=== PATIENT | female | born 1955 | race Caucasian/White ===

== ENCOUNTER 2019-12-28 14:41 | Outpatient (CLI) | payer OTHER, SELFPAY ==
[2019-12-28 14:50] VITALS: BMI 14.8
[2019-12-28 15:00] VITALS: BP 113/58; PULSE 110; RESP 18; TEMP 37.1; O2SAT 93
[2019-12-28 15:30] VITALS: BP 104/61; PULSE 104; RESP 18
[2019-12-28 15:51] LABS: Chloride 101 mmol/L (98-107); Potassium 5.2 mmoL/L (3.5-5.1); Sodium 137 mmol/L (136-145)
[2019-12-28 15:53] LABS: Amylase 41 U/L (30-110)
[2019-12-28 15:54] LABS: Alanine Aminotransferase 16 U/L (12-78); Albumin Level 4.1 g/dl (3.5-5.0); Albumin/Globulin Ratio 1.5 (1.1-1.8); Alkaline Phosphatase 104 U/L (38-126); Anion Gap 16.2 mEq/L (5-15); Aspartate Amino Transferase 21 U/L (14-36); Bilirubin,Total 0.6 mg/dl (0.2-1.3); Blood Urea Nitrogen 32 mg/dl (7-17); Calcium 9.1 mg/dl (8.4-10.2); Carbon Dioxide 25 mmol/L (22.0-30.0); Creatinine Clearance Estimated 23 mL/min (50-200); Estimated Glomerular Filt Rate 38 ml/min (>60); GFR (African American) 46 ML/MIN (>60); Globulin 2.8 g/dL (1.3-3.2); Glucose 130 mg/dl (74-100); Total Protein,Serum 6.9 g/dl (6.3-8.2)
[2019-12-28 16:00] VITALS: BP 92/41; PULSE 103; RESP 18
[2019-12-28 16:00] LABS: Lipase 19 U/L (23-300)
[2019-12-28 16:30] VITALS: BP 96/66; PULSE 88; RESP 18
== END 2019-12-28 16:35 | disposition home or self-care (01) ==
LOC: INF 14:45
PROVIDERS: PCP Family Medicine; Visit Provider Physician Assistant
DX: K52.9 Noninfective gastroenteritis and colitis, unspecified (principal); E86.0 Dehydration
CPT/HCPCS: 36415; 80053; 82150; 83690; 96360; 96367; 96375

== ENCOUNTER → 2020-03-02 11:30 | Outpatient (CLI) | payer OTHER, SELFPAY ==
--- NOTE | 2020-03-02 11:34 | CT_ITS ---
PROCEDURE: CT ABDOMEN PELVIS W CON CLINICAL INDICATION: ABD PAIN Severe lower abdominal pain with weight loss with nausea vomiting and COMPARISON: No exams were available for comparison TECHNIQUE: IV Contrast: 75ML OPTIRAY 350 Oral Contrast 450ml Redicat Axial images obtained with sagittal and coronal reformats. All CT scans at the facility use one or more dose reduction, viz: automated exposure control, ma/kV adjustment per patient size (including targeted exams where dose is matched to indication, i.e. head), or iterative reconstruction technique. FINDINGS: LOWER THORAX: There are centrilobular emphysematous changes in the lung bases. Mild atelectatic changes are present in the left lower lobe there is pericardial thickening measuring up to 1 cm consistent with pericardial effusion. ABDOMEN & PELVIS: There has been a prior cholecystectomy. Moderate intra and extrahepatic biliary ductal dilatation. No obvious pancreatic mass or choledocholithiasis. Please correlate with patient's liver function tests. MRCP may provide further evaluation for possible stricture at the distal CBD. There is mild thickening of the GE junction which may be better evaluated with upper GI or upper endoscopy. The spleen, adrenal glands, and left kidney has an unremarkable appearance. The there is a cyst in the mid polar region of the right kidney posteriorly at 1 cm. No evidence of appendicitis. There is thickening of the mucosa of the terminal ileum. Mild thickening of the jejunum. Mildly prominent small bowel loops are present in the left lower pelvic region. No evidence of diverticulitis. No acute bony anomaly IMPRESSION: 1. Prominent intra and extrahepatic biliary ductal dilatation. Common bile duct measures up to 16 mm. MRCP may provide further evaluation to exclude distal common duct stricture. 2. Thickening of the terminal ileum. There is also some thickening of the jejunum with a mildly prominent fluid-filled small bowel loop in the left lower pelvic region. These findings are compatible with enteritis. 3. Pericardial effusion. 4. Mild thickening of the GE junction nonspecific Dictated by: Mitul Islas MD 03/02/2020 13:16 Electronically signed by Mitul Islas MD in [place] 03/02/2020 13:16
== END ==
PROVIDERS: PCP Family Medicine; Visit Provider Nurse Practitioner Family
DX: R10.84 Generalized abdominal pain (principal)
CPT/HCPCS: 74177; Q9967

== ENCOUNTER → 2020-03-05 11:24 | Outpatient (CLI) | payer OTHER, SELFPAY ==
--- NOTE | 2020-03-05 11:30 | XR_ITS ---
PROCEDURE: XR CHEST 2V CLINICAL HISTORY: PERICARDIAL EFFUSION COMPARISON: CT ABDOMEN PELVIS W CON from 03/02/2020 FINDINGS: Normal heart size. COPD with interstitial thickening and Juancarlos B lines in the lung bases. Irregular density is noted in the right upper lobe and may be due to an area of scarring at approximately 12 mm. There is generalized osteopenia. No acute bony abnormalities. IMPRESSION: COPD. There are Juancarlos B lines in the lung bases which may be due to interstitial edema or interstitial lung disease. 12 mm opacity is present in the right upper lobe and could be due to or neoplasm. Follow-up is recommended. Dedicated chest CT may provide further evaluation. Dictated by: Mitul Islas MD 03/05/2020 13:40 Electronically signed by Mitul Islas MD in [place] 03/05/2020 13:40
== END ==
PROVIDERS: PCP Nurse Practitioner Family; Visit Provider Nurse Practitioner Family
DX: I31.9 Disease of pericardium, unspecified (principal)
CPT/HCPCS: 71046

== ENCOUNTER → 2020-03-07 13:44 | Outpatient (CLI) | payer OTHER, SELFPAY | PROVIDERS: PCP Nurse Practitioner Family; Visit Provider Nurse Practitioner Family | DX: I31.3 Pericardial effusion (noninflammatory) (principal) | CPT/HCPCS: 93306 ==

== ENCOUNTER → 2020-03-19 13:57 | Outpatient (POV) | payer OTHER, SELFPAY ==
[2020-03-19 15:17] LABS: Basophils # 0.1 K/mm3 (0-0.2); Basophils % 0.7 % (0.1-2.0); Eosinophils # 0.1 K/mm3 (0.0-0.4); Eosinophils % 1.3 % (0.1-12.0); Hematocrit 41.9 % (37.0-47.0); Hemoglobin 13.9 g/dL (12.2-16.2); Lymphocytes # 1.7 K/mm3 (0.7-4.5); Lymphocytes % 22.1 % (10-50); Mean Corpuscular HGB Conc 33.1 g/dL (31.8-35.4); Mean Corpuscular Hemoglobin 28.9 pg (27.0-31.2); Mean Corpuscular Volume 87.2 fl (81-99); Mean Platelet Volume 7.8 fl (7.4-10.4); Monocytes # 0.6 K/mm3 (0.1-1.0); Neutrophils # 5.1 K/mm3 (1.8-7.8); Neutrophils % 67.9 % (37.0-80.0); Platelet Count 314 K/mm3 (142-424); Red Cell Distribution Width 14.4 % (11.5-17.5); White Blood Count 7.6 K/mm3 (4.8-10.8)
[2020-03-19 16:28] LABS: Chloride 104 mmol/L (98-107); Potassium 4.2 mmoL/L (3.5-5.1); Sodium 136 mmol/L (136-145)
[2020-03-19 16:30] LABS: Alanine Aminotransferase 9 U/L (12-78); Aspartate Amino Transferase 16 U/L (14-36); Blood Urea Nitrogen 12 mg/dl (7-17); Estimated Glomerular Filt Rate 101 ml/min (>60); GFR (African American) 122 ML/MIN (>60)
[2020-03-19 16:31] LABS: Albumin Level 4.2 g/dl (3.5-5.0); Albumin/Globulin Ratio 1.5 (1.1-1.8); Alkaline Phosphatase 87 U/L (38-126); Anion Gap 13.2 mEq/L (5-15); Bilirubin,Total 0.5 mg/dl (0.2-1.3); Calcium 9.2 mg/dl (8.4-10.2); Carbon Dioxide 23 mmol/L (22.0-30.0); Globulin 2.8 g/dL (1.3-3.2); Glucose 96 mg/dl (74-100)
[2020-03-19 16:37] LABS: C-Reactive Protein 2.8 mg/L (0-4)
[2020-03-21 18:09] LABS: Deamidated Gliadin Abs, IgA 4 units (0-19); Deamidated Gliadin Abs, IgG 1 units (0-19); Endomysial IgA Antibody Negative (Negative); Tissue Transglutaminase IgA Ab <2 U/mL (0-3); Tissue Transglutaminase IgG Ab 4 U/mL (0-5)
[2020-03-22 07:29] LABS: Reticulin IgA Antibody Negative titer (Neg:<1:2.5)
[2020-03-22 14:20] LABS: Saccharomyces cerevisiae, IgA <20.0 Units (0.0-24.9); Saccharomyces cerevisiae, IgG <20.0 Units (0.0-24.9)
== END ==
PROVIDERS: PCP Family Medicine; Visit Provider Nurse Practitioner Family
DX: R19.4 Change in bowel habit (principal); R11.2 Nausea with vomiting, unspecified; R93.89 Abnormal findings on diagnostic imaging of other specified body structures
CPT/HCPCS: 36415; 80053; 83516; 85025; 86140; 86255; 86256; 86671

== ENCOUNTER → 2020-03-21 09:57 | Outpatient (CLI) | payer OTHER, SELFPAY ==
--- NOTE | 2020-03-21 09:59 | CT_ITS ---
PROCEDURE: CT CHEST W CON CLINCAL INDICATION: ABN CXR Abnormal chest x-ray, right upper lobe nodule, pericardial effusion COMPARISON: CT ABDOMEN PELVIS W CON from 03/02/2020 XR CHEST 2V from 03/05/2020 TECHNIQUE: IV Contrast: 75ml Optiray 350 Axial images obtained with sagittal and coronal reformats. All CT scans at the facility use one or more dose reduction, viz: automated exposure control, ma/kV adjustment per patient size (including targeted exams where dose is matched to indication, i.e. head), or iterative reconstruction technique. FINDINGS: HEART AND MEDIASTINAL STRUCTURES: There is thickening of the pericardium once again noted consistent with pericardial effusion the measuring up to 1.4 cm in thickness probably not significantly changed from the CT scan of 03/02/2020. LUNGS AND PLEURAL SPACES: Centrilobular emphysema with COPD and scattered areas of scarring. Irregular parenchymal opacity is present in the subpleural region of the right upper lobe corresponding to the radiographic abnormality. This measures approximately 2 cm. There are some air bronchograms in this region. This could be due to some pulmonary scarring. Similar but smaller opacity is present in the left upper lobe in the subpleural region at 1 cm. There is a calcified granuloma in the left lower lobe BONY STRUCTURES: Mild thoracic scoliosis convex right. UPPER ABDOMEN: The prominent biliary ectasia ADDITIONAL FINDINGS: There are numerous cutaneous nodules IMPRESSION: 1. Persistent thickening of the pericardium consistent with small pericardial effusion. 2. COPD with scattered areas of scarring with parenchymal opacity in both upper lobes right more prominent than left which may be related to pulmonary scarring. Recommend 3 month follow-up to confirm short term stability. 3. Multiple cutaneous nodules which require correlation with clinical findings Dictated by: Mitul Islas MD 03/22/2020 11:36 Electronically signed by Mitul Islas MD in [place] 03/22/2020 11:36
== END ==
PROVIDERS: PCP Family Medicine; Visit Provider Nurse Practitioner Family
DX: R93.89 Abnormal findings on diagnostic imaging of other specified body structures (principal)
CPT/HCPCS: 71260; Q9967

== ENCOUNTER → 2020-03-27 08:46 | Outpatient (CLI) | payer OTHER, SELFPAY ==
--- NOTE | 2020-03-27 08:50 | MR_ITS ---
PROCEDURE: MR ABDOMEN WO CON CLINICAL INDICATION: NAUSEA AND VOMITING, ALTERED BOWEL FUNCTION Nausia, vomiting, and diarrhea [id number]. Abnormal CT 03-02-20 Dilated common bile duct COMPARISON: CT ABDOMEN PELVIS W CON from 03/02/2020 TECHNIQUE: Routine multiplanar multi echo sequences are performed without gadolinium enhancement. MRCP performed FINDINGS: Prominent intra and extrahepatic biliary ductal dilatation is present. The common bile duct tapers distally without obvious internal filling defect. The pancreatic duct is normal. Common bile duct measures up to 14 mm in diameter. There is moderate intrahepatic biliary ductal dilatation. No obvious pancreatic mass. There is a 1 cm cyst of the right kidney IMPRESSION: 1. Dilated intra and extrahepatic biliary system with common bile duct measuring up to 15 mm. The common bile duct tapers distally without evidence of common duct stone. No malignant appearing strictures. Unremarkable appearing pancreatic duct.. Dictated by: Mitul Islas MD 03/30/2020 11:39 Electronically signed by Mitul Islas MD in [place] 03/30/2020 11:39
== END ==
PROVIDERS: PCP Family Medicine; Visit Provider Nurse Practitioner Family
DX: R19.4 Change in bowel habit (principal); R11.2 Nausea with vomiting, unspecified; R93.89 Abnormal findings on diagnostic imaging of other specified body structures
CPT/HCPCS: 74181; 76376

== ENCOUNTER → 2020-04-02 10:30 | Outpatient (CLI) | payer OTHER, SELFPAY ==
--- NOTE | 2020-04-02 | CA_ITS ---
APPROVED REPORT Exam: Pharmacologic Technologist: Jami Bush Ht: 5 ft 0 in Wt: 77 lbs BSA: 1.24 m2 HR: 67 bpm BP: 110/45 mmHg Indications: Shortness of Breath, Dizziness Medical History Medications: Aspirin,,,,, Metoprolol,,,,, ProMETHAZINE,,,,, RoSUVASTATIN,,,,, Stress Test Details Test: LEXISCAN HR Resting HR: 73 bpm Max Heart Rate (APMHR): 157 bpm Max HR Achieved: 109 bpm Target HR (85% APMHR): 133 bpm % of APMHR: 69 Recovery HR: 92 bpm BP Resting BP: 110.0/45.0 mmHg Max BP: 131.0/48.0 mmHg Recovery BP: 129.0/46.0 mmHg ECG Clinical Exercise duration: 04:01 min Highest Stage Achieved: Stress ECG Conclusion Resting ECG: Sinus Rhythm Lexiscan portion complete. Patient complained of shortness of breath during infusion. Symptoms: Shortness of breath during infusion, resolved in recovery. Arrhythmias/Ectopy: No ectopy noted. ST-T Changes: Less than 1.[address] depression. Conclusion: Images to follow. Test Summary REST . . . . . . . Resting REST 09:09 . . 73 . 110/ 45 . . Stage 1 . . . . . . . Myoview Injected Stage 1 01:00 . . 103 . . . . Stage 2 01:00 . . 108 . 131/ 48 . . Stage 3 01:00 . . 107 . 122/ 51 . . Stage 4 01:00 . . 102 . 128/ 51 . . Stage 4 01:01 . . 102 . 128/ 51 . Stop exercise at 04:01 RECOVERY 01:00 . . 105 . 113/ 49 . . RECOVERY 02:00 . . 101 . 113/ 49 . . RECOVERY 03:00 . . 98 . 130/ 48 . . RECOVERY 04:00 . . 93 . 130/ 48 . . RECOVERY 04:14 . . 94 . 129/ 46 . . Electronically signed by : Obed Velazquez, 04/02/2020 19:13:03
--- NOTE | 2020-04-02 10:31 | CA_ITS ---
APPROVED REPORT Flight Test Data Acquisition Technician: PETR Laterality: Bilateral Indications: bilateral carotid bruits, dizziness Risk Factors Hypertension: Smoking Doppler Spectral Velocity Analysis ECA (R) 117.40/8.60 cm/s ECA (L) 64.20/7.50 cm/s dICA (R) 72.80/13.70 cm/s dICA (L) 93.40/32.60 cm/s Augusto (R) 90.00/21.40 cm/s Augusto (L) 94.20/30.00 cm/s pICA (R) 76.30/21.40 cm/s pICA (L) 76.30/19.70 cm/s dCCA (R) 76.40/18.00 cm/s dCCA (L) 75.40/18.80 cm/s pCCA (R) 109.80/22.50 cm/s pCCA (L) 127.70/28.30 cm/s Vert (R) 61.70/13.70 cm/s Vert (L) 65.80/16.00 cm/s ICA/CCA 1.18 ICA/CCA 1.25 Findings Duplex evaluation demonstrates stenosis of the right proximal internal carotid artery <20% with PSV <140 cm/sec, EDV <100 cm/sec, and IC/CC Ratio <4.0.Duplex evaluation demonstrates stenosis of the left proximal internal carotid artery <20% with PSV <140 cm/sec, EDV <100 cm/sec, and IC/CC Ratio <4.0. Conclusion No increased velocities to suggest hemodynamically significant stenosis in either internal carotid artery. Electronically signed by : Mitul Islas MD 04/02/2020 19:04:05
--- NOTE | 2020-04-02 10:31 | NM_ITS ---
APPROVED REPORT Exam: Nuclear Stress Test Indication: Palpitations, Abnormal EKG, Tobacco use, Family history Patient Location: Outpatient Stress Tech: Jami Bush [place] Tech:Rocio Marino, ARRT, RT (R)(N) Ht: 5 ft 0 in Wt: 77 lbs Bra Size: 34A HR: 67 bpm BP: 110/45 mmHg BSA: 1.24 m2 History: Palpitations, Abnormal EKG, Tobacco use, Family history Procedure: Patient received a 0.4 mg of intravenous Lexiscan, resting heart rate 67 bpm, resting blood pressure 110/45 mmHg, with Lexiscan maximum heart rate achived was 106 bpm which is Less than 85 % of the maximum predicted heart rate and blood pressure was 131/48 mmHg. With Lexiscan, patient denied any complaint of chest pain. Electrocardiogram Resting electrocardiogram showed sinus rhythm right ventricular conduction delay, with Lexiscan there is less than 1.[address] segment depression noted from the baseline EKG. The EKG portion of the Lexiscan sestamibi is nondiagnostic. Cardiac Stress and Resting SPECT Images: Cardiac Stress and Resting SPECT images were obtained using technetium 99m Myoview 32.2 mCi stress and 10.78 mCi at rest. Gated SPECT for the analysis of segmental wall motion and calculation of the ejection fraction also done. Cardiac stress and resting SPECT images show uniform myocardial activity without segmental perfusion abnormality, computer derived ejection fraction is over 65% with no regional wall motion abnormality, right ventricle is normal size and contractility. Conclusion: 1. The EKG portion of the Lexiscan Myoview is nondiagnostic. 2. No scintigraphic evidence of reversible ischemia seen, computer derived ejection fraction is over 65% with no regional wall motion abnormality, right ventricle is normal size and contractility. 3. Normal Lexiscan Myoview study. Electronically signed by : Obed Velazquez, 04/02/2020 19:15:00
--- NOTE | 2020-04-02 12:18 | HMH.ITSHM ---
Current Home Medications as stated by this patient Nelida Brooke or customer response representative. []ROSUVASTATIN PROMETHAZINE METOPROLOL ASA
== END ==
PROVIDERS: PCP Family Medicine; Visit Provider Internal Medicine Cardiovascular Disease
DX: R42 Dizziness and giddiness (principal); R06.00 Dyspnea, unspecified; R09.89 Other specified symptoms and signs involving the circulatory and respiratory systems; R00.0 Tachycardia, unspecified; R94.31 Abnormal electrocardiogram [ECG] [EKG]
CPT/HCPCS: 78452; 93017; 93880; A9502; J2785

== ENCOUNTER → 2020-05-04 12:29 | Outpatient (CLI) | payer OTHER, SELFPAY ==
[2020-05-04 15:44] LABS: Coronavirus 19 IgG Antibody Negative (Negative); Coronavirus 19 IgM Antibody Negative (Negative)
== END ==
PROVIDERS: Visit Provider Internal Medicine Gastroenterology
DX: Z01.818 Encounter for other preprocedural examination (principal); R10.11 Right upper quadrant pain
CPT/HCPCS: 36415; 86328

== ENCOUNTER 2020-05-07 12:53 | Day surgery (SDC) | payer OTHER, SELFPAY ==
[2020-05-01 10:28] VITALS: BMI 15.0
[2020-05-07] VITALS (8 sets, daily range): BP systolic 87–125; BP diastolic 38–69; PULSE 66–101; RESP 12–18; TEMP 36.3–36.7; O2SAT 91–95
--- NOTE | 2020-05-07 13:35 | FL_ITS ---
PROCEDURE: FL ERCP CLINICAL INDICATION: R upper quadrant pain COMPARISON: MR MR ABDOMEN WO CON from 03/27/2020 FINDINGS: Fluoroscopy time: 1 minutes and 2 seconds The ampulla was unable to be cannulated. Two images are submitted with the endoscope in place. IMPRESSION: Unable to cannulate the ampulla Dictated by: Mitul Islas MD 05/07/2020 18:07 Mitul Islas MD in [place] 05/07/2020 18:07
--- NOTE | 2020-05-07 13:57 | P.PCN_ITS ---
[facility] Procedure Note Procedure Note:: ERCP procedure Report: Endoscopic retrograde cholangiopancreatography with biopsies Endoscopist: Tone Sierra II, MD Referring Physician: Darrell Contreras MD/ANNI Spears Date of Procedure: May 07, 2020 Equipment: Olympus 180 side viewing endoscope duodenoscope Sedation: MAC sedation Indication: Ms. Brooke is a 65-year-old female who is here for diagnostic/therapeutic ERCP. The patient does report right upper quadrant abdominal pain that radiates into the back. She will get severe pain and this is also associated with nausea, vomiting and diarrhea. She does get some rumbling in the abdomen but reports no bloating, gassiness or belching. She did have a CAT scan in February 2020 that showed a very prominent intra-and extrahepatic biliary system that was 16 mm. She has previously had cholecystectomy. She also has some thickening of the terminal ileum and jejunum compatible with enteritis. She has never had a colonoscopy. Her MRCP on March 27, 2020 showed a dilated intra-and extrahepatic biliary system with common bile duct measuring up to 15 mm. The patient does state that she had this corrected with biliary stent 16 years ago. She has lost 10 pounds in weight. She has an unremarkable appearing pancreatic duct on her imaging. She reports no acholic stools or jaundice. Her liver chemistries have been normal. Procedure: Prior to the procedure, a history and physical exam was performed, and patient's medications and allergies were reviewed. The risks, benefits and alternatives of the sedation and procedure were discussed with the patient. All questions were answered and informed consent was obtained. The patient was brought to the fluoroscopic radiology room. Patient identification and proposed procedure were verified by the physician and the nurse. The patient was placed in a swimmer's position between left lateral decubitus and prone position and the scope was passed under direct vision. Throughout the procedure, the patient's blood pressure, pulse, and oxygen saturations were monitored continuously. The ERCP was accomplished without difficulty. The patient tolerated the procedure well. Findings: The side-viewing duodenal scope was passed directly into the upper esophagus and advanced to the second portion of the duodenum. The ampulla was very prominent with no recognition of ampullary orifice and adjacent edematous mucosa. The ampulla was 1.8 cm and bulbous. Multiple attempts were made to identify the ampullary orifice but this area was very friable and was some spontaneous heme seen with every attempt making visualization difficult. After several attempts and obscured view, the procedure was aborted. Biopsies were taken from the ampulla. The mucosa within the second portion of the duodenum was scalloped and biopsies were obtained to rule out celiac disease. The bulb and pylorus were normal. There was bile reflux with some mild linear reactive gastropathy and some mild gastric atrophic gastritis. Upon retroflexion there was no significant hiatal hernia. The remainder of the esophageal mucosa was normal. Impression: 1. Enlarged ampullary bulbous prominence with surrounding edema and friability making cannulation difficult 2. Bile reflux with mild linear reactive gastropathy of antrum and mild chronic atrophic gastritis Plan: Based upon the moderate biliary ductal dilation and ampullary prominence with failure of biliary cannulation, I am going to repeat liver chemistries and CA-19-9 today. If these are elevated, I am going to recommend endoscopic ultrasound for further evaluation.
[2020-05-07 15:33] LABS: Bilirubin,Unconjugated 0.5 mg/dL (0.0-1.1)
[2020-05-07 15:34] LABS: Alanine Aminotransferase 12 U/L (12-78); Albumin Level 3.2 g/dl (3.5-5.0); Alkaline Phosphatase 117 U/L (38-126); Aspartate Amino Transferase 20 U/L (14-36); Bilirubin,Direct 0.1 mg/dl (0.0-0.4); Bilirubin,Indirect 0.4 mg/dL (0.0-0.9); Bilirubin,Total 0.5 mg/dl (0.2-1.3); Total Protein,Serum 5.9 g/dl (6.3-8.2)
--- NOTE | 2020-05-07 15:41 | HMH.ANESCL ---
[facility] Anesthesia Checklist - Patient Identification Patient Identification: Arm Band, Verbal (Name & ) - Structural Data Admitted From: Home Planned Operative Procedure/s: ERCP Consent for Planned Operative Procedure(s) Verified: Yes Verified Documents: Surgical Consent, History and Physical - NPO Status Verified Time NPO: 00:00 - Chart Verification Results Verified: None - Additional verifications Anesthesia Reactions: No - Airway Assessment C-Spine Mobility Assessed: Yes TMJ Mobility Assessed: Yes Dentition: Edentulous - Neurological Assessment Level of Consciousness: Awake, Alert, Appropriate, Follows Commands Hx Seizures: No Numbness or tingling in extremities: No - Anesthesia Plan Anesthesia Risk discussed: Yes Anesthesia Plan: Verified ASA Class: III Anesthesia Type: MAC [facility] History I have reviewed the patient's past medical history: Yes Medical History: Reports:: Arrhythmia, Chronic Obstructive Pulmonary Disease (COPD), Hyperlipidemia, Hypertension, Palpitations Denies:: Cancer, Diabetes Mellitus Type 1, Diabetes Mellitus Type 2, Internal Pacemaker, MRSA, Seizures *Have you ever received a pneumonia vaccine?: No *Have you received a flu vaccine this season?: No Other Medical History: Reports: Liver Disease Anesthesia experience/problems:: None Laterality Cases: Right: Breast Biopsy, Bilateral: Tonsillectomy Other Surgeries: Yes: Appendectomy, Dilation and Curettage, Tubal Ligation, Other. No: Pacemaker Amputation: No Fractures: Yes (L ANKLE-SCREWS PLACED THEN LATER REMOVED) - *Social History Last grade of school completed: GED Smoking Status: Current every day smoker Tobacco Type: cigarettes # Packs/Day (cigarettes): 1 Alcohol Intake: never Substance Use Type: denies use *Occupational Status:: employed Housing: other Household Members: friend(s) *Travel in the last 8 weeks: None Family Hx:: Cancer, Coronary Artery Disease, Diabetes, Hyperlipidemia, Hypertension, Kidney Disease
[2020-05-09 13:02] LABS: CA 19-9 10 U/mL (0-35)
== END 2020-05-07 16:00 | disposition home or self-care (01) ==
LOC: OUTP 12:54
PROVIDERS: PCP Family Medicine; Visit Provider Internal Medicine Gastroenterology
PROC: (CPT 43261; principal; 2020-05-07 14:00)
DX: K83.8 Other specified diseases of biliary tract (principal); K29.40 Chronic atrophic gastritis without bleeding; K21.9 Gastro-esophageal reflux disease without esophagitis; K31.9 Disease of stomach and duodenum, unspecified; E78.5 Hyperlipidemia, unspecified; I10 Essential (primary) hypertension; J44.9 Chronic obstructive pulmonary disease, unspecified; I49.9 Cardiac arrhythmia, unspecified; K76.9 Liver disease, unspecified; Z90.89 Acquired absence of other organs; Z90.49 Acquired absence of other specified parts of digestive tract; Z83.3 Family history of diabetes mellitus; Z72.0 Tobacco use
CPT/HCPCS: 43261; 36415; 74330; 80076; 86316; Q9967

== ENCOUNTER → 2020-06-14 08:40 | Outpatient (CLI) | payer OTHER, SELFPAY ==
[2020-06-14 11:40] LABS: Coronavirus 19 IgG Antibody Negative (Negative); Coronavirus 19 IgM Antibody Negative (Negative)
== END ==
PROVIDERS: Visit Provider Internal Medicine Gastroenterology
DX: Z01.89 Encounter for other specified special examinations (principal); Z12.11 Encounter for screening for malignant neoplasm of colon; R10.11 Right upper quadrant pain
CPT/HCPCS: 36415; 86328

== ENCOUNTER 2020-06-15 09:12 | Day surgery (SDC) | payer OTHER, SELFPAY ==
[2020-06-07 14:07] VITALS: BMI 15.0
[2020-06-15] VITALS (7 sets, daily range): BP systolic 87–115; BP diastolic 48–73; PULSE 78–99; RESP 16; TEMP 36.6–36.7; O2SAT 95–97
--- NOTE | 2020-06-15 10:59 | P.PN_ITS ---
[facility] Anesthesia Checklist - Patient Identification Patient Identification: Arm Band - Structural Data Admitted From: Home Planned Operative Procedure/s: colonoscopy Consent for Planned Operative Procedure(s) Verified: Yes Verified Documents: Surgical Consent, History and Physical - NPO Status Verified Time NPO: 00:00 - Additional verifications Anesthesia Reactions: No - Airway Assessment C-Spine Mobility Assessed: Yes (mp2) TMJ Mobility Assessed: Yes Dentition: Edentulous - Neurological Assessment Level of Consciousness: Awake, Alert - Anesthesia Plan Anesthesia Risk discussed: Yes Anesthesia Plan: Verified ASA Class: III Anesthesia Type: MAC [facility] History I have reviewed the patient's past medical history: Yes Medical History: Reports:: Arrhythmia, Chronic Obstructive Pulmonary Disease (COPD), Hyperlipidemia, Hypertension, Palpitations Denies:: Cancer, Diabetes Mellitus Type 1, Diabetes Mellitus Type 2, Internal Pacemaker, MRSA, Seizures *Have you ever received a pneumonia vaccine?: No *Have you received a flu vaccine this season?: No Other Medical History: Reports: Liver Disease Anesthesia experience/problems:: nac Laterality Cases: Right: Breast Biopsy, Bilateral: Tonsillectomy Other Surgeries: Yes: Appendectomy, Dilation and Curettage, Tubal Ligation, Other. No: Pacemaker Amputation: No Fractures: Yes (L ANKLE-SCREWS PLACED THEN LATER REMOVED) - *Social History Last grade of school completed: GED Smoking Status: Current every day smoker Tobacco Type: cigarettes # Packs/Day (cigarettes): 1 Alcohol Intake: never Substance Use Type: denies use *Occupational Status:: retired Housing: house Household Members: friend(s) *Travel in the last 8 weeks: None Family Hx:: Diabetes
--- NOTE | 2020-06-15 11:09 | HMH.PROC ---
[facility] Procedure Note Procedure Note:: Colonoscopy Procedure Report: Colonoscopy with snare tissue removal Endoscopist: Tone Sierra II, MD Referring physician: Quinn Contreras MD Date of Procedure: June 15, 2020 Equipment: Olympus 180 variable stiffness pediatric colonoscope Sedation: MAC sedation Indication: Mrs. Brooke is a 65-year-old female who is having right upper quadrant and right-sided abdominal pain that radiates into the back. She does get diarrhea. She also had some nausea. Her weight has stabilized but she has lost a moderate amount of weight. The [facility] and had a dilated biliary system primarily because of her neurofibromatosis involvement of the duodenum. This was benign. Recently, she had a CAT scan in February 2020 that showed a prominent intra-and extrahepatic biliary system at 16 mm. The CAT scan did show thickening of the ileum and jejunum compatible with enteritis. The patient has never had a colonoscopy. Her MRCP on March 27, 2020 again showed intra-and extrahepatic biliary ductal dilation. Her ERCP showed an enlarged ampullary bulbous prominence consistent with neurofibromatosis involvement of the duodenum. The patient's liver function panel including alkaline phosphatase, ALT and total bilirubin were normal. Her CA-19-9 was normal. Additional lab work from February 2020 did show hemoglobin 13.9 and hematocrit 41.9. The patient reports no family history of colon cancer. Procedure: Prior to the procedure, a history and physical exam was performed, and patient's medications and allergies were reviewed. The risks, benefits and alternatives of the sedation and procedure were discussed with the patient. All questions were answered and informed consent was obtained. The patient was brought to the procedure room. Patient identification and proposed procedure were verified by the physician and the nurse. The patient was placed in a left lateral decubitus position and the scope was passed under direct vision. Throughout the procedure, the patient's blood pressure, pulse, and oxygen saturations were monitored continuously. The colonoscopy was accomplished without difficulty. The patient tolerated the procedure well. Findings: On digital rectal examination there was normal rectal tone. There were no external hemorrhoids. The colonoscope was introduced through the anal canal to the rectum and advanced to the cecum. The appendiceal orifice was identified but the ileocecal valve was encased by tumor/friable fungating mass lesion that involved the valve and proximal ascending colon that was one third the circumference of the colon in this region. This mass lesion was not tattooed because it was located easily adjacent to the valve but tissue was removed via snare polypectomy/snare tissue removal to have more abundant specimen for pathology. Upon withdrawal, the remainder of the ascending/hepatic flexure, transverse, descending colon were normal. There were scattered diverticuli throughout the descending and sigmoid colon (LEFT colon). The rectum itself was normal. Upon retroflexion within the rectum there were grade 1-2 internal hemorrhoids. The preparation was excellent throughout with Arden Preparation Score of 9. The cecal time was 12 minutes. Impression: 1. Colonic mass involving cecum/ascending colon and encasement of ileocecal valve?consistent with right-sided colon cancer 2. Left-sided diverticulosis 3. Grade 1-2 internal hemorrhoids Plan: I am going to recommend repeat imaging/CT scan of the abdomen and pelvis with IV and oral contrast. The patient does have significant comorbidities and I will speak with Dr. Sony Sanderson (colorectal surgery at [facility]) for possible right hemicolectomy. We will need staging evaluation with imaging. I will discuss all of the findings with the patient and family.
--- NOTE | 2020-06-15 11:31 | CT_ITS ---
PROCEDURE: CT ABDOMEN PELVIS W CON CLINICAL INDICATION: colon mass Right-sided abdominal pain, colon mass COMPARISON: CT CT ABDOMEN PELVIS W CON from 03/02/2020 TECHNIQUE: IV Contrast: 75ML OPTIRAY 350 Oral Contrast None Axial images obtained with sagittal and coronal reformats. All CT scans at the facility use one or more dose reduction, viz: automated exposure control, ma/kV adjustment per patient size (including targeted exams where dose is matched to indication, i.e. head), or iterative reconstruction technique. FINDINGS: LOWER THORAX: There are centrilobular emphysematous changes in the lung bases. There is thickening of the pericardium suggesting pericardial effusion. This measures to 1 cm. ABDOMEN & PELVIS: There has been a prior cholecystectomy. There is moderate intra and extrahepatic biliary ductal dilatation similar to the previous exam. The pancreatic duct is slightly prominent in the head of the pancreas. The spleen, adrenal glands, and pancreas has an unremarkable appearance. There is prominent thickening of the pyloric region of the stomach concentric in nature. Direct visualization may provide further evaluation. No focal liver lesions are evident. There is a right renal cyst measuring 12 mm. The left kidney has an unremarkable appearance. There are mildly prominent fluid-filled small bowel loops in the pelvic region which are nonspecific with a few air-fluid levels in this area. These bowel loops are unopacified with oral contrast. There is increased soft tissue density at the ileocecal valve and in the cecum suspicious for soft tissue mass/neoplasm. This area of abnormal soft tissue density measures approximately 3.5 by 1.7 cm. No pelvic adenopathy or abnormal fluid collection apparent. There is some subcutaneous densities noted at the pubic region left more so than right which is of questionable cyst clinical significance. No acute bony anomalies are evident. Previously noted thickened terminal ileum has a improved. IMPRESSION: 1. Soft tissue mass at the ileocecal valve and cecal area suspicious for neoplasm. Severe inflammatory changes such is typhlitis could have a similar appearance. Recommend correlation with recent colonoscopy. 2. Mildly prominent small bowel loops in the lower pelvic region which are nonspecific. Enteritis or ileus is a consideration. 3. No change in the moderate intra and extrahepatic biliary ductal dilatation. 4. Concentric thickening at the pyloric region of the stomach which could be inflammatory or neoplastic. Direct visualization may provide further evaluation Dictated by: Mitul Islas MD 06/15/2020 14:50 Mitul Islas MD in [place] 06/15/2020 14:50
[2020-06-15 11:55] LABS: Basophils # 0.1 K/mm3 (0-0.2); Basophils % 0.9 % (0.1-2.0); Eosinophils # 0.2 K/mm3 (0.0-0.4); Eosinophils % 2.6 % (0.1-12.0); Hematocrit 37.8 % (37.0-47.0); Hemoglobin 12.5 g/dL (12.2-16.2); Lymphocytes # 0.9 K/mm3 (0.7-4.5); Lymphocytes % 14.3 % (10-50); Mean Corpuscular HGB Conc 33.1 g/dL (31.8-35.4); Mean Corpuscular Hemoglobin 28.7 pg (27.0-31.2); Mean Corpuscular Volume 86.5 fl (81-99); Mean Platelet Volume 7.7 fl (7.4-10.4); Monocytes # 0.8 K/mm3 (0.1-1.0); Monocytes % 11.7 % (1.7-9.3); Neutrophils # 4.5 K/mm3 (1.8-7.8); Neutrophils % 70.5 % (37.0-80.0); Platelet Count 324 K/mm3 (142-424); Red Blood Count 4.37 M/mm3 (4.20-5.40); Red Cell Distribution Width 14.3 % (11.5-17.5); White Blood Count 6.4 K/mm3 (4.8-10.8)
[2020-06-15 12:12] LABS: Chloride 116 mmol/L (98-107); Potassium 4.5 mmoL/L (3.5-5.1); Sodium 147 mmol/L (136-145)
[2020-06-15 12:14] LABS: Alanine Aminotransferase 81 U/L (12-78); Alkaline Phosphatase 406 U/L (38-126); Aspartate Amino Transferase 78 U/L (14-36); Bilirubin,Total 0.5 mg/dl (0.2-1.3); Blood Urea Nitrogen 9 mg/dl (7-17); Creatinine Clearance Estimated 32 mL/min (50-200); Estimated Glomerular Filt Rate 101 ml/min (>60); GFR (African American) 122 ML/MIN (>60)
[2020-06-15 12:15] LABS: Albumin Level 3.8 g/dl (3.5-5.0); Albumin/Globulin Ratio 1.4 (1.1-1.8); Anion Gap 13.5 mEq/L (5-15); Calcium 9.4 mg/dl (8.4-10.2); Carbon Dioxide 22 mmol/L (22.0-30.0); Globulin 2.7 g/dL (1.3-3.2); Glucose 103 mg/dl (74-100); Iron 43 ug/dL (37-170); Total Protein,Serum 6.5 g/dl (6.3-8.2)
[2020-06-15 12:24] LABS: Total Iron Binding Capacity 486 ug/dL (265-497)
[2020-06-16 18:18] LABS: CEA 2.9 ng/mL (0.0-4.7)
== END 2020-06-15 12:15 | disposition home or self-care (01) ==
LOC: OUTP 09:14
PROVIDERS: PCP Family Medicine; Visit Provider Internal Medicine Gastroenterology
PROC: 0DJD8ZZ Inspection of Lower Intestinal Tract, Via Natural or Artificial Opening Endoscopic (ICD-10-PCS; CPT 45378; principal; 2020-06-15 10:30)
DX: Z87.19 Personal history of other diseases of the digestive system (principal); K57.30 Diverticulosis of large intestine without perforation or abscess without bleeding; K64.0 First degree hemorrhoids; K63.89 Other specified diseases of intestine; J44.9 Chronic obstructive pulmonary disease, unspecified; E78.5 Hyperlipidemia, unspecified; I10 Essential (primary) hypertension; R00.2 Palpitations; I49.9 Cardiac arrhythmia, unspecified; Z90.49 Acquired absence of other specified parts of digestive tract; Z87.39 Personal history of other diseases of the musculoskeletal system and connective tissue; Z72.0 Tobacco use
CPT/HCPCS: 45385; 36415; 74177; 80053; 82378; 82728; 83540; 83550; 85025; Q9967

== ENCOUNTER → 2020-08-03 08:50 | Outpatient (CLI) | payer OTHER, SELFPAY ==
[2020-08-03 09:19] LABS: Blood Urea Nitrogen 16 mg/dl (7-17); Estimated Glomerular Filt Rate 72 ml/min (>60); GFR (African American) 88 ML/MIN (>60)
--- NOTE | 2020-08-03 10:22 | CT_ITS ---
PROCEDURE: CT CHEST WO/W CON CLINCAL INDICATION: COLON CANCER COMPARISON: CT CT CHEST W CON from 03/21/2020 TECHNIQUE: IV Contrast: 75ml Isovue 370 Axial images obtained with sagittal and coronal reformats. All CT scans at the facility use one or more dose reduction, viz: automated exposure control, ma/kV adjustment per patient size (including targeted exams where dose is matched to indication, i.e. head), or iterative reconstruction technique. FINDINGS: HEART AND MEDIASTINAL STRUCTURES: Car all thickening remains and there is a persistent small pericardial effusion unchanged in size from the previous study 03/21/2020. LUNGS AND PLEURAL SPACES: There is hyperexpansion lung loo with advanced centrilobular emphysematous changes most pronounced in the upper lobes bilaterally. There are stable areas of subpleural irregular opacities in the posterior segments of both upper lobes larger right side than left and the stable appearance is most consistent with postinflammatory pleural and parenchymal scarring. I would doubt metastatic disease. There is no acute infiltrate seen and there is no pleural fluid. BONY STRUCTURES: There is minor focal dextroscoliotic curvature of the upper thoracic spine which was seen previously. All thoracic vertebrae appear intact. No lytic or blastic lesions are seen. UPPER ABDOMEN: A biliary duct stent is seen in place ADDITIONAL FINDINGS: No other significant abnormalities. IMPRESSION: Advanced emphysematous changes with stable areas of pleural and parenchymal scarring in the upper lobes bilaterally. There are no CT findings to suggest pulmonary metastatic disease. Dictated by: Dr. Bernard Calhoun MD 08/03/2020 12:07 Dr. Bernard Calhoun MD in [place] 08/03/2020 12:07
== END ==
PROVIDERS: Visit Provider Internal Medicine Medical Oncology
DX: C18.9 Malignant neoplasm of colon, unspecified (principal); Z01.818 Encounter for other preprocedural examination
CPT/HCPCS: 36415; 71270; 82565; 84520; Q9967

== ENCOUNTER → 2020-08-20 08:09 | Outpatient (CLI) | payer OTHER, SELFPAY ==
[2020-08-20 08:42] LABS: Basophils # 0.1 K/mm3 (0-0.2); Basophils % 0.8 % (0.1-2.0); Eosinophils # 0.1 K/mm3 (0.0-0.4); Eosinophils % 1.2 % (0.1-12.0); Hematocrit 50.4 % (37.0-47.0); Hemoglobin 15.7 g/dL (12.2-16.2); Lymphocytes # 2.1 K/mm3 (0.7-4.5); Lymphocytes % 24.3 % (10-50); Mean Corpuscular HGB Conc 31.2 g/dL (31.8-35.4); Mean Corpuscular Hemoglobin 29.1 pg (27.0-31.2); Mean Corpuscular Volume 93.3 fl (81-99); Monocytes # 0.9 K/mm3 (0.1-1.0); Monocytes % 10.3 % (1.7-9.3); Neutrophils # 5.4 K/mm3 (1.8-7.8); Neutrophils % 63.5 % (37.0-80.0); Platelet Count 290 K/mm3 (142-424); Red Cell Distribution Width 15.1 % (11.5-17.5); White Blood Count 8.5 K/mm3 (4.8-10.8)
[2020-08-20 08:50] LABS: Chloride 103 mmol/L (98-107); Sodium 142 mmol/L (136-145)
[2020-08-20 08:53] LABS: Blood Urea Nitrogen 14 mg/dl (7-17); Estimated Glomerular Filt Rate 101 ml/min (>60); GFR (African American) 122 ML/MIN (>60)
[2020-08-20 08:54] LABS: Anion Gap 17.1 mEq/L (5-15); Calcium 10.4 mg/dl (8.4-10.2); Carbon Dioxide 28 mmol/L (22.0-30.0); Glucose 149 mg/dl (74-100)
[2020-08-20 09:28] LABS: Potassium 6.1 mmoL/L (3.5-5.1)
[2020-08-20 10:57] LABS: Coronavirus 19 IgG Antibody Negative (Negative); Coronavirus 19 IgM Antibody Negative (Negative)
== END ==
PROVIDERS: Visit Provider Surgery
DX: C18.9 Malignant neoplasm of colon, unspecified (principal)
CPT/HCPCS: 36415; 80048; 85025; 86328

== ENCOUNTER → 2020-08-21 09:58 | Outpatient (CLI) | payer OTHER, SELFPAY ==
[2020-08-21 11:18] LABS: Chloride 99 mmol/L (98-107)
[2020-08-21 11:19] LABS: Potassium 5.1 mmoL/L (3.5-5.1); Sodium 140 mmol/L (136-145)
[2020-08-21 11:22] LABS: Alanine Aminotransferase 29 U/L (12-78); Albumin Level 4.4 g/dl (3.5-5.0); Albumin/Globulin Ratio 1.6 (1.1-1.8); Alkaline Phosphatase 161 U/L (38-126); Anion Gap 14.1 mEq/L (5-15); Aspartate Amino Transferase 36 U/L (14-36); Bilirubin,Total 0.5 mg/dl (0.2-1.3); Blood Urea Nitrogen 17 mg/dl (7-17); Carbon Dioxide 32 mmol/L (22.0-30.0); Estimated Glomerular Filt Rate 63 ml/min (>60); GFR (African American) 77 ML/MIN (>60); Globulin 2.8 g/dL (1.3-3.2); Glucose 121 mg/dl (74-100); Total Protein,Serum 7.2 g/dl (6.3-8.2)
== END ==
PROVIDERS: Visit Provider Family Medicine
DX: J95.811 Postprocedural pneumothorax (principal)
CPT/HCPCS: 36415; 80053

== ENCOUNTER 2020-08-22 14:21 | Inpatient (IN) | payer OTHER, SELFPAY ==
[2020-08-21 09:21] VITALS: BMI 14.2
[2020-08-22] VITALS (31 sets, daily range): BP systolic 81–142; BP diastolic 38–72; PULSE 68–120; RESP 16–22; TEMP 35.9–37.1; O2SAT 89–98; BMI 14.2
--- NOTE | 2020-08-22 09:21 | P.PN_ITS ---
[facility] Anesthesia Checklist - Patient Identification Patient Identification: Arm Band, Verbal (Name & ) - Structural Data Admitted From: Home Planned Operative Procedure/s: pac Consent for Planned Operative Procedure(s) Verified: Yes Verified Documents: History and Physical - NPO Status Verified Time NPO: 00:00 - Chart Verification Results Verified: CBC, BMP - Additional verifications Patient : No Anesthesia Reactions: No Hx Blood Transfusions: No Blood Transfusion Reaction: No Cephalosporin Allergy: No Previous Colonoscopy: No - Cardiovascular Assessment Heart Sounds: S1 & S2 Pulse Strength: Baseline Pulse Rhythm: Regular Peripheral Edema: No - Airway Assessment C-Spine Mobility Assessed: Yes TMJ Mobility Assessed: Yes Dentition: Edentulous - Neurological Assessment Level of Consciousness: Awake, Alert, Appropriate Hx Seizures: No Numbness or tingling in extremities: No - Anesthesia Plan Anesthesia Risk discussed: Yes Anesthesia Plan: Verified ASA Class: III Anesthesia Type: General [facility] History I have reviewed the patient's past medical history: Yes Medical History: Reports:: Arrhythmia, Cancer (colon), Chronic Obstructive Pulmonary Disease (COPD), Hyperlipidemia, Hypertension, Palpitations Denies:: Diabetes Mellitus Type 1, Diabetes Mellitus Type 2, Internal Pace maker, MRSA, Seizures *Have you ever received a pneumonia vaccine?: No *Have you received a flu vaccine this season?: No Other Medical History: Reports: Anemia, Liver Disease. Denies: Blood Transfusion Reaction Anesthesia experience/problems:: none Laterality Cases: Right: Breast Biopsy, Bilateral: Tonsillectomy Other Surgeries: Yes: No Previous Surgery, Appendectomy, Cholecystectomy, Colonoscopy, Colon Resection (colon cancer), Dilation and Curettage, Diagnostic Lap, Tubal Ligation, Other (right tube, right ovary, tumor from breast, stomach). No: Pacemaker Amputation: No Fractures: Yes (L ANKLE-SCREWS PLACED THEN LATER REMOVED) - *Social History Last grade of school completed: GED Smoking Status: Current every day smoker Tobacco Type: cigarettes # Packs/Day (cigarettes): 1 #Yrs smoked (if former smoker): 45 Alcohol Intake: never Substance Use Type: denies use *Occupational Status:: retired Housing: house Household Members: friend(s) *Travel in the last 8 weeks: None Family Hx:: Diabetes
--- NOTE | 2020-08-22 11:51 | HMH.OPNOTE ---
Date of procedure: 08/22/20 Pre-op Diagnosis:: Colon cancer need for venous access for chemotherapy Post-op Diagnosis:: Same Procedure performed:: Placement of single-lumen 8 Zambian tunneled subcutaneous catheter removed with the reservoir port (PowerPort) and left subclavian vein Surgeon:: Jaxon Norris MD PRIVATE INQUIRY AGENT:: Feroz Kendall Anesthesia: LMA Estimated blood loss (mL): 15 Clinical Note:: Patient is a 65-year-old female with several comorbidities and neurofibromatosis. She began having right-sided abdominal pain several months ago with associated weight loss and had a CT scan done in February 2020 which revealed biliary ductal dilatation and thickening of the ileocecal region. This was followed by MRCP. She underwent ERCP by Dr. Sierra on 05/07/2020. She did have a benign mass. 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 She underwent right hemicolectomy by Dr. 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 She has seen Dr. Wood. Tentative plan is for 6 months of adjuvant chemotherapy starting on August 23. This is pending negative CT scan of the chest. Plan was for PowerPort placement for chemotherapy. Operative findings:: Essentially normal anatomy Operative note:: Patient was taken to the operating room. She was given preoperative intravenous antibiotics. In the operating room she was placed in a supine position. General anesthesia was induced via LMA. Bilateral neck and upper chest were prepped and draped in the standard surgical fashion. Patient was positioned in Trendelenburg position. Local anesthetic was infiltrated inferior to the left clavicle medial to the deltopectoral groove. 18-gauge needle was passed several times and ultimately the left subclavian vein was cannulated with good return of venous flow. Guidewire was inserted. Fluoroscopy was used to confirm appropriate position of the guidewire. Small incision was made at the guidewire insertion site. Subcutaneous tissues were dilated using the dilator with breakaway sheath. Dilator and guidewire were removed. Single-lumen PowerPort catheter was inserted through the breakaway sheath which was then removed. Fluoroscopy was used once again to confirm appropriate positioning of the catheter tip near the atriocaval junction. Skin was marked with a skin marker for planned subcutaneous tunnel and pocket. Local anesthetic was infiltrated. Incision was made at the site of the subcutaneous pocket. Electrocautery was used to create subcutaneous pocket. Due to the paucity of soft tissue this was to the pectoralis muscle. Fluoroscopy was used to confirm good positioning of the catheter with once again. Catheter was cut to the appropriate length. It was secured to the PowerPort reservoir. The reservoir port was secured into the subcutaneous pocket with interrupted 2-0 Vicryl sutures. Port aspirated and flushed without difficulty. There was good hemostasis. Subdermal tissues were closed with a running 2-0 Vicryl. Skin incisions were closed with 4-0 Monocryl in a subcuticular fashion. Dressings were applied. Port was then accessed through the Tegaderm. There was good return of blood. It was flushed with injectable saline followed by heparinized saline. There were no immediate complications. Condition: stable Disposition: PACU Complications:: None immediately apparent
--- NOTE | 2020-08-22 12:01 | HMH.ANESI ---
[facility] Anesthesia Record Part I Intake, IV Amount: 500 Estimated blood loss (mL): 15 Urine output (mL): 0 Blood Products used (#): none Blood Pressure: 109/57 SaO2: 93 Pulse Rate: 105 Respiratory Rate: 16 Temperature: 98.3 F Patient is:: Awake, Drowsy, Nasal O2, Stable Stable to PACU at:: 11:55
--- NOTE | 2020-08-22 12:07 | XR_ITS ---
PROCEDURE: XR CHEST PORTABLE CLINICAL HISTORY: port-a-cath placement, left chest COMPARISON: CR XR CHEST 2V from 03/05/[address] CHEST WO/W CON from 08/03/2020 FINDINGS: 1207 hours. Left subclavian Port-A-Cath has been placed. The tip is in good position in the region of the superior vena cava. There is a medium-sized left apical pneumothorax measuring approximately 5.8 cm at the apical pleural distance. There is severe emphysema with pulmonary fibrosis and consolidation or volume loss within the left midlung. There is a small component of the pneumothorax which is lateral extending to the lung base. There is a biliary stent noted in the right upper quadrant IMPRESSION: Interval left Port-A-Cath placement with medium size left apical pneumothorax with a small lateral component. There is no evidence of mediastinal shift. Severe emphysema with consolidation or volume loss in the left midlung. Estella the patient's nurse in postop recovery was given this report by telephone 08/22/2020 at 12:50 p.m. Dictated by: Mitul Islas MD 08/22/2020 13:00 Mitul Islas MD in [place] 08/22/2020 13:00
--- NOTE | 2020-08-22 14:06 | FL_ITS ---
PROCEDURE: FL GUIDED CENTRAL LINE PLACEMT CLINICAL INDICATION: PORT A CATH COMPARISON: No exams were available for comparison FINDINGS: Fluoroscopy time: 0.4 minutes Single image submitted shows a central venous line present with the tip in the region the SVC. IMPRESSION: Fluoro assisted central line placement Dictated by: Mitul Islas MD 08/22/2020 19:26 Mitul Islas MD in [place] 08/22/2020 19:26
--- NOTE | 2020-08-22 14:25 | XR_ITS ---
PROCEDURE: XR CHEST PORTABLE CLINICAL INDICATION: chest tube placement chest tube placement, follow-up pneumothorax COMPARISON: CR XR CHEST 2V from 03/05/[address] CHEST WO/W CON from 08/03/2020 CR XR CHEST PORTABLE from 08/22/2020 FINDINGS: Left-sided chest tube has been placed. The tip overlies the upper chest medially. The left apical pneumothorax is no longer apparent. The lateral component is also not identified. There may be a small basilar component. Atelectatic changes in the left midlung have improved. There are atelectatic changes in the left lung base and also in the right lung base. Left subclavian Port-A-Cath tip is in the region the SVC. Right-sided upper abdominal catheter is present consistent with a biliary stent. IMPRESSION: Status post left-sided chest tube insertion with marked decrease in size of the left pneumothorax Dictated by: Mitul Islas MD 08/22/2020 14:44 Mitul Islas MD in [place] 08/22/2020 14:44
--- NOTE | 2020-08-22 14:38 | P.PCN_ITS ---
[facility] Procedure Note Procedure Note:: Preoperative diagnosis: Left pneumothorax Postoperative diagnosis: Same Procedure performed: Placement of 20 Frisian left thoracostomy tube Surgeon: Jaxon Norris MD Anesthesia: MAC with local Indications: Patient is a 65-year-old female with several comorbidities and COPD with a BMI of 14. She has relatively recently diagnosed colon cancer in need of chemotherapy. Patient underwent placement of left subclavian PowerPort due to need for chemotherapy for colon cancer. This went without incident. However, post procedure chest x-ray revealed left pneumothorax. Patient was relatively asymptomatic. However, given the size of the pneumothorax plan was made for chest tube placement. Procedure: Patient was maintained on the stretcher in the postanesthesia care unit. Sedation was achieved by anesthesia. Left chest was prepped and draped in the standard surgical fashion. Local anesthetic was infiltrated. Incision was made. Dissection was carried down through subcutaneous tissues and intercostal muscles. Pleural space was bluntly entered. 20 Frisian chest tube was inserted. It was secured to the skin with 0 Surgilon horizontal mattress suture at approximately the 14 cm molly. Additional suture was placed to allow for incision closure when chest tube removed. Clean dry sterile dressing was applied. Patient tolerated procedure well with no immediate complications. Preliminary review of post procedure chest x-ray reveals good placement with reexpansion of lung.
--- NOTE | 2020-08-22 15:07 | HMH.PHAINT ---
Medication reconciliation completed using pharmacy claims data.
--- NOTE | 2020-08-22 15:08 | HMH.PHAVTE ---
[facility] Pharmacy VTE Monitoring - Patient Demographics Admission date: 08/22/20 Report Date: 08/22/20 Time: 15:08 Allergies/Adverse Reactions: Patient Allergies Penicillins Allergy (Intermediate, Verified 08/21/20 09:30) Rash ciprofloxacin Allergy (Unknown, Verified 08/21/20 09:30) codeine Allergy (Unknown, Verified 08/21/20 09:30) itching hydrocodone [From Lortab] Allergy (Unknown, Verified 08/21/20 09:30) Rash nitrofurantoin [From Macrobid] Allergy (Unknown, Verified 08/21/20 09:30) caused fluid to build in lungs Height: 1.52 m Weight: 33.112 kg - VTE Risk Clinical Trial Participant: No - Prophylaxis VTE Prophylaxis Ordered?: Yes Types of VTE Prophylaxis: TEDS Knee High Location of Applied Device: Bilateral Lower Extremeties
--- NOTE | 2020-08-22 16:37 | SUR.PHASEI ---
Patient transferred back to PACU: Patient returned to PACU at 1330 after Minerva Celaya RN in post op received a call from Dr Islas at 1256. Dr Islas stated the patient had sustained a pneumothorax (see Minerva's nursing note). Dr Norris was made aware of pnuemothorax while he was in the OR. Dr Norris ordered patient be brought back to PACU for chest tube insertion. Dr Norris sterilely inserted chest tube in left lung at the bedside in [place] [facility] of PACU, under MAC anesthesia. See invasive procedure documentation.
--- NOTE | 2020-08-22 17:27 | HMH.HP ---
*Admission Date: 08/22/20 *Chief complaint: FAMILY MEDICINE CONSULT: *History of present illness: This 65-year-old white female with neurofibromatosis underwent right hemicolectomy by Dr. 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 Today she was to have a PowerPort placement in anticipation of 6 months of adjuvant chemotherapy starting on August 23. The procedure went well but postoperatively she was found to have a left pneumothorax of significant volume. She has had a chest tube placed subsequently by Dr. Norris. Dr. Norris asked for my consultation. She is stable post procedure. She complains of some upper back pain between the scapulae. She is not short of breath. Regarding additional details the patient had suffered right-sided abdominal pain several months back with associated weight loss. A CT scan done in February revealed biliary ductal dilatation and thickening of the ileocecal region. She underwent ERCP by Dr. Sierra on May 07, 2020. She did have a benign mass. She underwent colonoscopy on 06/15/2020 was found to have ileal cecal carcinoma. Subsequently she underwent a hemicolectomy. Dr. Wood has seen the patient and will be managing her chemotherapy. [facility] History Medical History: Reports:: Arrhythmia, Cancer (colon cancer), Chronic Obstructive Pulmonary Disease (COPD), Hyperlipidemia, Hypertension, Palpitations Denies:: Diabetes Mellitus Type 1, Diabetes Mellitus Type 2, Internal Pacemaker, MRSA, Seizures *Have you ever received a pneumonia vaccine?: No *Have you received a flu vaccine this season?: No Other Medical History: Reports: Anemia, Liver Disease. Denies: Blood Transfusion Reaction Anesthesia experience/problems:: none Laterality Cases: Right: Breast Biopsy, Bilateral: Tonsillectomy Other Surgeries: Yes: Appendectomy, Cholecystectomy, Colonoscopy, Colon Resection (colon cancer), Dilation and Curettage, Diagnostic Lap, Tubal Ligation, Other (right tube, right ovary, tumor from breast, stomach). No: Pacemaker Amputation: No Fractures: Yes (L ANKLE-SCREWS PLACED THEN LATER REMOVED) - *Social History Last grade of school completed: GED Smoking Status: Current every day smoker Tobacco Type: cigarettes # Packs/Day (cigarettes): 1 #Yrs smoked (if former smoker): 45 Alcohol Intake: never Substance Use Type: denies use *Occupational Status:: retired Housing: apartment Household Members: friend(s) *Travel in the last 8 weeks: None Family Hx:: Cancer, Diabetes, Heart Attack Review of Systems - Constitutional Denies anorexia - Eyes Denies change in vision - ENT Denies difficulty swallowing - *Cardiovascular Reports chest pain, Denies irregular heart rhythm - *Respiratory Denies cough - *Gastrointestinal Reports abdominal pain, Reports bloating (She has lots of gas she states, since the bowel resection) Meds Home Medications Medication Instructions Recorded Confirmed Type promethazine 25 mg tablet 25 mg PO Q6H PRN tab 03/29/20 08/22/20 History Aspirin [Low Dose Aspirin EC] 81 mg PO DAILY 05/01/20 08/22/20 History Atorvastatin Calcium [Lipitor 40mg 40 mg PO DAILY 05/01/20 08/22/20 History Tab] Metoprolol Succinate [Metoprolol 25 mg PO DAILY 05/01/20 08/22/20 History Succinate 25mg Tablet*] ondansetron HCL [Ondansetron 8mg 1 tab PO Q6H PRN 08/22/20 08/22/20 History tab*] Allergies Allergy/AdvReac Type Severity Reaction Status Date / Time Penicillins Allergy Intermediate Rash Verified 08/21/20 09:30 ciprofloxacin Allergy Unknown Verified 08/21/20 09:30 codeine Allergy Unknown itching Verified 08/21/20 09:30 hydrocodone [From Lortab] Allergy Unknown Rash Verified 08/21/20 09:30 nitrofurantoin Allergy Unknown caused Verified 08/21/20 09:30 [From Macrobid] fluid to build in lungs Exam Vital signs and Labs for Last 24 Hours: Temp Pulse Resp BP Pulse Ox 98.4 F 105 H 20 108/54 L 90 L
--- NOTE | 2020-08-22 17:53 | SUR.PHASEI ---
Patient transported via bed by Betsy Andersen RN and Laura Mir RN to Med/Surg after report to Coco Katz RN on second floor. Patient departed PACU at 1455.
[2020-08-23] VITALS: BP 110/61; PULSE 84; RESP 20; TEMP 36.7; O2SAT 90
--- NOTE | 2020-08-23 06:00 | XR_ITS ---
PROCEDURE: XR CHEST PORTABLE CLINICAL HISTORY: PNEUMOTHORAX Follow-up pneumothorax COMPARISON: CR XR CHEST 2V from 03/05/[address] CHEST WO/W CON from 08/03/2020 CR XR CHEST PORTABLE from 08/22/2020 CR XR CHEST PORTABLE from 08/22/2020 FINDINGS: Left-sided chest tube remains in place. There is a tiny residual left apical pneumothorax which is 6 mm in with. Left subclavian Port-A-Cath once again noted with the tip in the SVC area. Diffuse emphysematous changes are present with scattered areas of scarring. Left basilar airspace disease has shown some improvement. There is some residual atelectasis or infiltrate in the lung bases and there remains a small amount of subcutaneous emphysema and left lateral chest wall. Scarring is present in the right upper lobe. IMPRESSION: As above, tiny residual left apical pneumothorax with emphysema and bibasilar airspace disease Dictated by: Mitul Islas MD 08/23/2020 08:14 Mitul Islas MD in [place] 08/23/2020 08:14
--- NOTE | 2020-08-23 06:22 | PC.NURSE ---
pt a&OX4 lungs CTA O2 sats 90-93 on 3L. dressing to chest tube is intact but shadowing is noted but not changed since borders marked. no crepitus noted. no drainage from chest tube. chest tube set to dry suction. pt medicated for pain x 2 per MAR. pt voids per BSC.
--- NOTE | 2020-08-23 06:57 | HMH.GSPN ---
Subjective Patient reports: no new complaints Progress Note: A&P (1) Pneumothorax, postoperative Status: Acute Assessment and plan: No obvious residual pneumothorax. No air leak. Chest tube to waterseal Follow-up chest x-ray ordered (12:00) (2) Colon cancer Status: Acute (3) Smoker Status: Chronic Exam Vital signs and Labs for Last 24 Hours: Temp Pulse Resp BP Pulse Ox 98.0 F 84 20 110/61 90 L 08/23/20 00:00 08/23/20 00:00 08/23/20 00:00 08/23/20 00:00 08/23/20 00:00 I & O for Last 24 hours: Intake & Output 08/20/20 08/21/20 08/22/20 08/23/20 11:59 11:59 11:59 11:59 Intake Total 1436 / 1436 Balance 1436 / 1436 Weight 73 lb 73 lb - Constitutional no acute distress - *Routine Respiratory Exam Absent: respiratory distress Comments: No air leak - *Routine Cardiovascular Exam Present: RRR
--- NOTE | 2020-08-23 07:00 | HMH.ANESII ---
[facility] Anesthesia Record Part II Discharge Time: 12:25 Destination: Medical Surgical Department (due to pneumothorax) PACU nurse assessment reviewed?: Yes Patient Condition:: Good Anesthesia Complications:: None Swallowing reflex intact?: Yes Cyanosis?: No Blood Pressure: 96/55 Pulse Rate: 98 Temperature: 98.3 F Mental Status: Alert & Oriented Pain level:: 0 Nausea and/or vomitting:: None Intake, IV Amount: 0
[2020-08-23 07:02] VITALS: BP 96/55; PULSE 98; TEMP 36.8
[2020-08-23 08:00] VITALS: BP 109/45; PULSE 77; RESP 19; TEMP 36.8; O2SAT 90
[2020-08-23 10:00] VITALS: O2SAT 91
--- NOTE | 2020-08-23 10:40 | HMH.ACPN2 ---
Internal Medicine - PN: Subj *Date: 08/23/20 *Time: 10:40 Interval history: FAMILY MEDICINE CONSULT: She still feels short of breath. She did not sleep very well. She is concerned. The chest x-ray obtained this morning shows marked improvement in the pneumothorax. Follow-up chest x-ray is ordered at noon by Dr. Norris. Exam Vital signs and Labs for Last 24 Hours: Temp Pulse Resp BP Pulse Ox 98.2 F 77 19 109/45 L 90 L 08/23/20 08:00 08/23/20 08:00 08/23/20 08:00 08/23/20 08:00 08/23/20 08:00 I & O for Last 24 hours: Intake & Output 08/20/20 08/21/20 08/22/20 08/23/20 11:59 11:59 11:59 11:59 Intake Total 1676 / 1676 Output Total 300 / 300 Balance 1376 / 1376 Weight 73 lb 73 lb - Constitutional no acute distress - *Routine HEENT Exam Head: Present: normocephalic Eye: Present: PERRL ENT: Present: mucous membranes moist - *Routine Respiratory Exam Present: rales (Few left basilar. Good air movement bilaterally) - *Routine Extremities Exam Absent: edema Assessment and Plan (1) Pneumothorax, postoperative Status: Acute Category: Medical Code(s): J95.811 - Postprocedural pneumothorax (2) Colon cancer Status: Acute Category: Medical Code(s): C18.9 - Malignant neoplasm of colon, unspecified (3) Smoker Status: Chronic Category: Social Hx Code(s): F17.200 - Nicotine dependence, unspecified, uncomplicated - Assessment and plan all Dx Assessment and Plan for all problems:: I have ordered her daily metoprolol 25 mg extended release.
--- NOTE | 2020-08-23 12:00 | XR_ITS ---
PROCEDURE: XR CHEST PORTABLE CLINICAL HISTORY: PTX Follow-up pneumothorax COMPARISON: 08/23/2020 FINDINGS: Left apical pneumothorax is once again noted with apical pleural distance 10 mm previously 6 mm on the same day. Left-sided chest tube is in place. There has been interval development of opacification in the retrocardiac region on the left consistent with left lower lobe collapse. Diffuse emphysematous changes are present with chronic changes. Left subclavian MediPort catheter is present with the tip in the region the SVC. Right-sided biliary stent is noted. There is a small cortical lucency of the left humeral shaft at 6 mm which is nonspecific. IMPRESSION: 1. Small left apical pneumothorax very slightly larger with left chest tube in place. 2. Interval development of left lower lobe collapse with superimposed emphysema Dictated by: Mitul Islas MD 08/23/2020 12:44 Mtiul Islas MD in [place] 08/23/2020 12:44
[2020-08-23 16:00] VITALS: BP 105/53; PULSE 77; RESP 16; TEMP 36.8; O2SAT 90
--- NOTE | 2020-08-23 16:15 | HMH.CONS ---
*Admission Date: 08/22/20 *Reason for consult:: h/o colon cancer *History of present illness: 65 yo with stage III colon cancer. surgery was jul 05 at . plan for adjuvant chemotherapy. port was requested. complicated by pneumothorax for which the pt is admitted. cxr improving. pt reports sob and discomfort from port and from chest tube. [facility] History Medical History: Reports:: Arrhythmia, Cancer (colon cancer), Chronic Obstructive Pulmonary Disease (COPD), Hyperlipidemia, Hypertension, Palpitations Denies:: Diabetes Mellitus Type 1, Diabetes Mellitus Type 2, Internal Pacemaker, MRSA, Seizures *Have you ever received a pneumonia vaccine?: No *Have you received a flu vaccine this season?: No Other Medical History: Reports: Anemia, Liver Disease. Denies: Blood Transfusion Reaction Anesthesia experience/problems:: none Laterality Cases: Right: Breast Biopsy, Bilateral: Tonsillectomy Other Surgeries: Yes: No Previous Surgery, Appendectomy, Cholecystectomy, Colonoscopy, Colon Resection (colon cancer), Dilation and Curettage, Diagnostic Lap, Tubal Ligation, Other (right tube, right ovary, tumor from breast, stomach). No: Pacemaker Amputation: No Fractures: Yes (L ANKLE-SCREWS PLACED THEN LATER REMOVED) - *Social History Last grade of school completed: GED Smoking Status: Current every day smoker Tobacco Type: cigarettes # Packs/Day (cigarettes): 1 #Yrs smoked (if former smoker): 45 Alcohol Intake: never Substance Use Type: denies use *Occupational Status:: retired Housing: apartment Household Members: friend(s) *Travel in the last 8 weeks: None Family Hx:: Cancer, Diabetes, Heart Attack Meds Home Medications Medication Instructions Recorded Confirmed Type promethazine 25 mg tablet 25 mg PO Q6H PRN tab 03/29/20 08/22/20 History Aspirin [Low Dose Aspirin EC] 81 mg PO DAILY 05/01/20 08/22/20 History Atorvastatin Calcium [Lipitor 40mg 40 mg PO DAILY 05/01/20 08/22/20 History Tab] Metoprolol Succinate [Metoprolol 25 mg PO DAILY 05/01/20 08/22/20 History Succinate 25mg Tablet*] ondansetron HCL [Ondansetron 8mg 1 tab PO Q6H PRN 08/22/20 08/22/20 History tab*] Allergies Allergy/AdvReac Type Severity Reaction Status Date / Time Penicillins Allergy Intermediate Rash Verified 08/21/20 09:30 ciprofloxacin Allergy Unknown Verified 08/21/20 09:30 codeine Allergy Unknown itching Verified 08/21/20 09:30 hydrocodone [From Lortab] Allergy Unknown Rash Verified 08/21/20 09:30 nitrofurantoin Allergy Unknown caused Verified 08/21/20 09:30 [From Macrobid] fluid to build in lungs Exam Vital signs and Labs for Last 24 Hours: Temp Pulse Resp BP Pulse Ox 98.2 F 77 19 109/45 L 91 L 08/23/20 08:00 08/23/20 08:00 08/23/20 08:00 08/23/20 08:00 08/23/20 10:00 I & O for Last 24 hours: Intake & Output 08/21/20 08/22/20 08/23/20 08/24/20 11:59 11:59 11:59 11:59 Intake Total 1676 / 1676 120 / 120 Output Total 300 / 300 Balance 1376 / 1376 120 / 120 Weight 73 lb 73 lb Assessment and Plan (1) Pneumothorax, postoperative Status: Acute Category: Medical Code(s): J95.811 - Postprocedural pneumothorax (2) Colon cancer Status: Acute Category: Medical Code(s): C18.9 - Malignant neoplasm of colon, unspecified (3) Smoker Status: Chronic Category: Social Hx Code(s): F17.200 - Nicotine dependence, unspecified, uncomplicated - Assessment and plan all Dx Assessment and Plan for all problems:: stage III colon cancer- plan to start adjuvant chemo within the next month. will f/up in office next week and if able will start next week. pneumothorax from port plct- chest tube in place reassured pt. Fidelina Wood MD
--- NOTE | 2020-08-23 19:00 | PC.NURSE ---
A&OX4. PT HAS TOLERATED 3L NC WELL THROUGHOUT SHIFT. RESPIRATIONS REGULAR AND UNLABORED. FINE CRACKLES NOTED TO L SIDE OF LUNG. OCCASIONAL COUGH NOTED. PT GET SOB EASY WHEN COUGHING. CHEST TUBE IN PLACE TO L SIDE OF LUNG. SHADOWING NOTED TO DRESSING AND MARKED BY PREVIOUS RN. NO CHANGES NOTED. WILL CONTINUE TO MONITOR. INCENTIVE SPIROMETER ENCOURAGED 10 TIMES EVERY HOUR WHILE AWAKE. SCUDS IN PLACE. ACTIVE BOWEL SOUNDS HEARD IN ALL 4 QUADRANTS. SOFT AND TENDER ABDOMEN NOTED. NO BM THUS FAR. PT VOIDS PER BEDPAN WITH CLEAR YELLOW URINE NOTED. NO PAIN REPORTED THROUGHOUT SHIFT BUT STATES TUBE IS UNCOMFORTABLE. DAUGHTER HAS REMAINED AT BEDSIDE. HAND LIFE TESTER OUTBOARD MOTORS EQUAL. +2 PULSES NOTED THROUGHOUT. NO EDEMA NOTED. PT IS CURRENTLY SITTING UP IN BED RESTING. BED IN LOWEST POSITION. CALL LIGHT WITHIN REACH. VSS. WILL CONTINUE TO MONITOR.
[2020-08-23 20:00] VITALS: BP 107/48; PULSE 72; RESP 22; TEMP 36.6; O2SAT 96
[2020-08-24] VITALS: BP 90/50; PULSE 72; RESP 16; TEMP 37.1; O2SAT 91
[2020-08-24 04:00] VITALS: BP 120/52; PULSE 75; RESP 22; TEMP 36.8; O2SAT 93
--- NOTE | 2020-08-24 05:32 | PC.NURSE ---
Pt A&OX4 lungs CTA. O2 sats 91-94 % on 3L. Lt chest tube dressing shadowing has went outside of borders. 60 ml of bloody drainage in pleur vac. pt has ambulated to BSC X 1. pt has been sitting up in recliner since 3am
[2020-08-24 05:54] VITALS: BMI 14.9
--- NOTE | 2020-08-24 06:00 | XR_ITS ---
PROCEDURE: XR CHEST PORTABLE CLINICAL HISTORY: PTX Follow-up pneumothorax COMPARISON: CT CT CHEST WO/W CON from 08/03/2020 CR XR CHEST PORTABLE from 08/22/2020 CR XR CHEST PORTABLE from 08/23/2020 CR XR CHEST PORTABLE from 08/23/2020 FINDINGS: There remains a small left apical pneumothorax with left chest tube in place. The apical pleural distance is 16 mm previously 10 mm. Left lower lobe collapse has improved. Diffuse pulmonary fibrotic changes with emphysema once again noted. Port-A-Cath present from left subclavian approach with tip in the region the SVC. Biliary stent also noted. No acute bony abnormalities. IMPRESSION: Slight increase in size of left apical pneumothorax with left chest tube in place. Emphysema with chronic interstitial changes with improvement in left lower lobe collapse Dictated by: Mitul Islas MD 08/24/2020 05:27 Mitul Islas MD in [place] 08/24/2020 05:27
--- NOTE | 2020-08-24 07:53 | HMH.GSPN ---
Subjective Narrative: Patient states she has some minor shortness of air. CXR reveals small apical pneumothorax. Progress Note: A&P (1) Pneumothorax, postoperative Status: Acute (2) Colon cancer Status: Acute (3) Smoker Status: Chronic Assessment and Plan for All Diagnoses:: No definite air leak. Will place to 40cm suction to see if able to attain pleural apposition. Exam Vital signs and Labs for Last 24 Hours: Temp Pulse Resp BP Pulse Ox 98.2 F 75 22 120/52 L 93 L 08/24/20 04:00 08/24/20 04:00 08/24/20 04:00 08/24/20 04:00 08/24/20 04:00 I & O for Last 24 hours: Intake & Output 08/21/20 08/22/20 08/23/20 08/24/20 11:59 11:59 11:59 11:59 Intake Total 1676 / 1676 1084 / 1084 Output Total 300 / 300 1360 / 1360 Balance 1376 / 1376 -276 / -276 Weight 73 lb 73 lb 76 lb - *Routine Respiratory Exam Comments: Equal breath sounds.
[2020-08-24 08:00] VITALS: BP 116/46; PULSE 71; RESP 18; TEMP 36.4; O2SAT 90
[2020-08-24 13:55] VITALS: BMI 14.7
--- NOTE | 2020-08-24 14:00 | XR_ITS ---
PROCEDURE: XR CHEST PORTABLE CLINICAL HISTORY: FOLLOW UP PNEUMOTHORAX COMPARISON: CR XR CHEST 2V from 03/05/2020 FINDINGS: There is a small left apical pneumothorax which is slightly decreased in size compared to the previous exam of the same day. The apical pleural distance is 6 mm compared to 16 mm. Left-sided chest tube and central venous line remain in place., there is severe emphysematous change with pulmonary fibrosis with mild left basilar atelectasis and trace bilateral effusions. Sclerosis is present in the right humeral neck and may be due to a bone infarction. There is some scarring in the right upper lobe. No acute bony abnormalities. IMPRESSION: Left-sided pneumothorax is slightly decreased in size. No other changes evident. Please see above for detail Dictated by: Mitul Islas MD 08/24/2020 13:45 Mitul Islas MD in [place] 08/24/2020 13:45
--- NOTE | 2020-08-24 14:49 | HMH.GSPN ---
Subjective Narrative: Chest x-ray after placing chest tube on 40 cm of suction shows decreasing size of pneumothorax. No clear air leak. Progress Note: A&P (1) Pneumothorax, postoperative Status: Acute (2) Colon cancer Status: Acute (3) Smoker Status: Chronic Assessment and Plan for All Diagnoses:: We will keep chest tube on 40 cm of suction overnight. If decreasing size of pneumothorax and no evidence of air leak may build would place on waterseal tomorrow. Exam Vital signs and Labs for Last 24 Hours: Temp Pulse Resp BP Pulse Ox 97.6 F 71 18 116/46 L 90 L 08/24/20 08:00 08/24/20 08:00 08/24/20 08:00 08/24/20 08:00 08/24/20 08:00 I & O for Last 24 hours: Intake & Output 08/22/20 08/23/20 08/24/20 08/25/20 11:59 11:59 11:59 11:59 Intake Total 1676 / 1676 1324 / 1324 120 / 120 Output Total 300 / 300 1660 / 1660 Balance 1376 / 1376 -336 / -336 120 / 120 Weight 73 lb 76 lb 74 lb 15.315 oz
--- NOTE | 2020-08-24 15:48 | HMH.ACPN2 ---
Internal Medicine - PN: Subj *Date: 08/24/20 *Time: 09:00 Interval history: FAMILY MEDICINE CONSULT: The patient was seen on rounds this AM. She is stable, NAD. Exam revealed rhonchi and rales on left. Discomfort with deep inspiration. Exam Vital signs and Labs for Last 24 Hours: Temp Pulse Resp BP Pulse Ox 97.6 F 71 18 116/46 L 90 L 08/24/20 08:00 08/24/20 08:00 08/24/20 08:00 08/24/20 08:00 08/24/20 08:00 I & O for Last 24 hours: Intake & Output 08/22/20 08/23/20 08/24/20 08/25/20 11:59 11:59 11:59 11:59 Intake Total 1676 / 1676 1324 / 1324 120 / 120 Output Total 300 / 300 1660 / 1660 Balance 1376 / 1376 -336 / -336 120 / 120 Weight 73 lb 76 lb 74 lb 15.315 oz - Constitutional no acute distress - *Routine HEENT Exam Head: Present: normocephalic Eye: Present: PERRL ENT: Present: mucous membranes moist - Routine Chest/Breast/Axilla Exam Chest wall: Present: tenderness (chest tube in place) - *Routine Respiratory Exam Present: rales (on left), rhonchi (on left) - *Routine Cardiovascular Exam Present: RRR - *Routine Abdominal Exam Present: soft. Absent: tenderness - *Routine Extremities Exam Absent: edema - *Routine Neurological Exam Present: alert, oriented X3 Assessment and Plan (1) Pneumothorax, postoperative Status: Acute Category: Medical Code(s): J95.811 - Postprocedural pneumothorax (2) Colon cancer Status: Acute Category: Medical Code(s): C18.9 - Malignant neoplasm of colon, unspecified (3) Smoker Status: Chronic Category: Social Hx Code(s): F17.200 - Nicotine dependence, unspecified, uncomplicated - Assessment and plan all Dx Assessment and Plan for all problems:: I will continue to follow the patient during this hospitalization.
[2020-08-24 16:00] VITALS: BP 110/64; PULSE 69; RESP 20; TEMP 36.7; O2SAT 91
[2020-08-24 17:01] LABS: Basophils # 0.1 K/mm3 (0-0.2); Basophils % 0.8 % (0.1-2.0); Eosinophils # 0.2 K/mm3 (0.0-0.4); Eosinophils % 2.4 % (0.1-12.0); Hematocrit 40.8 % (37.0-47.0); Lymphocytes # 1.8 K/mm3 (0.7-4.5); Mean Corpuscular HGB Conc 31.8 g/dL (31.8-35.4); Mean Corpuscular Hemoglobin 28.8 pg (27.0-31.2); Mean Corpuscular Volume 90.6 fl (81-99); Mean Platelet Volume 8.1 fl (7.4-10.4); Monocytes # 0.9 K/mm3 (0.1-1.0); Neutrophils % 57.9 % (37.0-80.0); Platelet Count 269 K/mm3 (142-424); Red Blood Count 4.51 M/mm3 (4.20-5.40); Red Cell Distribution Width 15.1 % (11.5-17.5); White Blood Count 6.9 K/mm3 (4.8-10.8)
[2020-08-24 17:10] LABS: Chloride 104 mmol/L (98-107); Potassium 4.5 mmoL/L (3.5-5.1); Sodium 137 mmol/L (136-145)
[2020-08-24 17:13] LABS: Anion Gap 8.5 mEq/L (5-15); Blood Urea Nitrogen 13 mg/dl (7-17); Calcium 8.9 mg/dl (8.4-10.2); Carbon Dioxide 29 mmol/L (22.0-30.0); Creatinine Clearance Estimated 31 mL/min (50-200); Estimated Glomerular Filt Rate 85 ml/min (>60); GFR (African American) 102 ML/MIN (>60); Glucose 95 mg/dl (74-100)
--- NOTE | 2020-08-24 17:24 | PC.NURSE ---
PATIENT A&O X4, LUNGS: RIGHT SIDE THROUGHOUT, EXPIRATORY WHEEZING, LEFT SIDE CLEAR. PULSES EQUAL. PATIENT UP TO BC X3 DURING THIS RN SHIFT. THIS RN HAS EDUCATED PATIENT ON THE IMPORTANCE OF DEEP COUGHING AND USING HER IS. PATIENT HAS VERBALIZED AN UNDERSTANDING. PATIENT CHEST TUBE DRESSING HAS HAD NO CHANGES OF DRAINAGE SINCE SHIFT CHANGE THIS AM. NO OTHER CONCERNS AT THIS TIME.
[2020-08-24 20:00] VITALS: BP 112/49; PULSE 68; RESP 20; TEMP 36.4; O2SAT 92
[2020-08-24 22:03] VITALS: O2SAT 91
[2020-08-25] VITALS: BP 113/46; PULSE 67; RESP 24; TEMP 36.7; O2SAT 89
[2020-08-25 04:00] VITALS: BP 121/60; PULSE 68; RESP 24; TEMP 36.8; O2SAT 91
[2020-08-25 05:00] VITALS: BMI 14.8
--- NOTE | 2020-08-25 06:00 | XR_ITS ---
PROCEDURE: XR CHEST PORTABLE CLINICAL HISTORY: PTX Follow-up pneumothorax COMPARISON: CR XR CHEST 2V from 03/05/[address] CHEST WO/W CON from 08/03/2020 CR XR CHEST PORTABLE from 08/22/2020 CR XR CHEST PORTABLE from 08/23/2020 CR XR CHEST PORTABLE from 08/24/2020 CR XR CHEST PORTABLE from 08/24/2020 FINDINGS: Left-sided chest tube remains in place. No appreciable pneumothorax. There is a thin linear density in the left apex however, this may be associated with the rib. Lung markings are present distal to this region and there is a similar density on the right side Severe emphysema with scattered parenchymal areas of scarring and pulmonary fibrosis once again noted. Mild left basilar atelectasis with trace left effusion. Central venous line tip is in the region the SVC No acute bony abnormalities. IMPRESSION: No change left-sided chest tube with no appreciable pneumothorax with diffuse emphysema pulmonary fibrosis with left basilar atelectasis and trace effusion on the left Dictated by: Mitul Islas MD 08/25/2020 06:16 Mitul Islas MD in [place] 08/25/2020 06:16
--- NOTE | 2020-08-25 07:59 | PC.NURSE ---
Pt is A&Ox4. Inspiratory and expiratory rhonchi heard t/o all lung loo. Pt continues to be on 3 L NC with favorable results. Chest tube remains patent and in place with no crepitus noted. Chest tube dressing has no new drainage noted this shift. Chest tube collection chamber has no additional drainage noted since prior shift. Pt continues to use BSC with standby assist and is urinating clear, yellow urine. No BM noted this shift. Daughter remains at bedside No other acute changes or complaints at this time. WIll continue to monitor.
[2020-08-25 08:00] VITALS: BP 110/53; PULSE 97; RESP 20; TEMP 36.7; O2SAT 91
--- NOTE | 2020-08-25 09:09 | HMH.GSPN ---
Subjective Patient reports: no new complaints Progress Note: A&P (1) Pneumothorax, postoperative Status: Acute (2) Colon cancer Status: Acute (3) Smoker Status: Chronic Assessment and Plan for All Diagnoses:: CXR reveals no PTX. No air leak. Will place on water seal. Exam Vital signs and Labs for Last 24 Hours: Temp Pulse Resp BP Pulse Ox 98.1 F 97 H 20 110/53 L 91 L 08/25/20 08:00 08/25/20 08:00 08/25/20 08:00 08/25/20 08:00 08/25/20 08:00 Laboratory Results - last 24 hr 08/24/20 15:54: Sodium 137, Potassium 4.5, Chloride 104, Carbon Dioxide 29, Anion Gap 8.5, BUN 13, Creatinine 0.70, Estimated Creat Clear 31, Estimated GFR 85, Est GFR ( Amer) 102, Glucose 95, Calcium 8.9 08/24/20 16:20: WBC 6.9, RBC 4.51, Hgb 13.0, Hct 40.8, MCV 90.6, MCH 28.8, MCHC 31.8, RDW 15.1, Plt Count 269, MPV 8.1, Neut % (Auto) 57.9, Lymph % (Auto) 26.0, [place] % (Auto) 13.0 H, Eos % (Auto) 2.4, Baso % (Auto) 0.8, Neut # (Auto) 4.0, Lymph # (Auto) 1.8, [place] # (Auto) 0.9, Eos # (Auto) 0.2, Baso # (Auto) 0.1 I & O for Last 24 hours: Intake & Output 08/22/20 08/23/20 08/24/20 08/25/20 11:59 11:59 11:59 11:59 Intake Total 1676 / 1676 1324 / 1324 1222 / 1222 Output Total 300 / 300 1660 / 1660 Balance 1376 / 1376 -336 / -336 1202 / 1202 Weight 73 lb 76 lb 75 lb 6 oz - *Routine Respiratory Exam Comments: Equal breath sounds.
[2020-08-25 14:00] VITALS: BP 105/58; PULSE 72; RESP 17; TEMP 36.4; O2SAT 93
--- NOTE | 2020-08-25 14:08 | HMH.ACPN2 ---
Internal Medicine - PN: Subj *Date: 08/25/20 *Time: 14:08 Interval history: FAMILY MEDICINE: The patient is tired of being here but seems clinically better. She is not short of breath. She seems to rest little more comfortably. Labs are reviewed from 08/24. See note from Dr. Norris. Exam Vital signs and Labs for Last 24 Hours: Temp Pulse Resp BP Pulse Ox 98.1 F 97 H 20 110/53 L 91 L 08/25/20 08:00 08/25/20 08:00 08/25/20 08:00 08/25/20 08:00 08/25/20 08:00 Laboratory Results - last 24 hr 08/24/20 15:54: Sodium 137, Potassium 4.5, Chloride 104, Carbon Dioxide 29, Anion Gap 8.5, BUN 13, Creatinine 0.70, Estimated Creat Clear 31, Estimated GFR 85, Est GFR ( Amer) 102, Glucose 95, Calcium 8.9 08/24/20 16:20: WBC 6.9, RBC 4.51, Hgb 13.0, Hct 40.8, MCV 90.6, MCH 28.8, MCHC 31.8, RDW 15.1, Plt Count 269, MPV 8.1, Neut % (Auto) 57.9, Lymph % (Auto) 26.0, [place] % (Auto) 13.0 H, Eos % (Auto) 2.4, Baso % (Auto) 0.8, Neut # (Auto) 4.0, Lymph # (Auto) 1.8, [place] # (Auto) 0.9, Eos # (Auto) 0.2, Baso # (Auto) 0.1 I & O for Last 24 hours: Intake & Output 08/23/20 08/24/20 08/25/20 08/26/20 11:59 11:59 11:59 11:59 Intake Total 1676 / 1676 1324 / 1324 1222 / 1222 Output Total 300 / 300 1660 / 1660 Balance 1376 / 1376 -336 / -336 1202 / 1202 Weight 73 lb 76 lb 75 lb 6 oz - Constitutional no acute distress (Resting comfortably in bed) - *Routine HEENT Exam Head: Present: normocephalic Eye: Present: PERRL ENT: Present: mucous membranes moist - *Routine Respiratory Exam Present: CTA bilaterally (The left lung sounds clearer and more normal. See chest x-ray.) - *Routine Cardiovascular Exam Present: RRR - *Routine Abdominal Exam Present: soft. Absent: tenderness - *Routine Extremities Exam Absent: edema Assessment and Plan (1) Pneumothorax, postoperative Status: Acute Category: Medical Code(s): J95.811 - Postprocedural pneumothorax (2) Colon cancer Status: Acute Category: Medical Code(s): C18.9 - Malignant neoplasm of colon, unspecified (3) Smoker Status: Chronic Category: Social Hx Code(s): F17.200 - Nicotine dependence, unspecified, uncomplicated - Assessment and plan all Dx Assessment and Plan for all problems:: Continue present care
[2020-08-25 20:00] VITALS: BP 112/59; PULSE 86; RESP 32; TEMP 36.7; O2SAT 91
--- NOTE | 2020-08-25 20:16 | PC.NURSE ---
DR. CHIU AT BEDSIDE THIS AM, TURNED OFF WALL SUCTION FOR CHEST TUBE. THIS RN INQUIRED ABOUT DRESSING CHANGES WITH DR. CHIU. PER MD, OKAY TO CHANGE. STATED THAT HE USED XEROFORM, 4X4S AND TAPE. THIS RN ALONG WITH NEHEMIAH RN REMOVED OLD DRESSING, NO NEW DRAINAGE NOTED FROM PREVIOUS SHIFT. NEW XEROFROM WAS PLACE, COVERED BY 4X4S, SECURED WITH TAPE. PATIENT TOLERATED WELL. PATIENT HAD TOTAL OF 16ML DRAINAGE FROM CHEST TUBE. NO OTHER CONCERNS AT THIS TIME.
--- NOTE | 2020-08-25 21:53 | XR_ITS ---
PROCEDURE: XR CHEST PORTABLE CLINICAL HISTORY: pleuritic pain Pleuritic chest pain COMPARISON: CT CT CHEST WO/W CON from 08/03/2020 CR XR CHEST PORTABLE from 08/24/2020 CR XR CHEST PORTABLE from 08/24/2020 CR XR CHEST PORTABLE from 08/25/2020 FINDINGS: Borderline cardiomegaly without failure. Left chest tube and MediPort catheter remains in place. There is a small residual left apical pneumothorax not significantly changed. Diffuse interstitial changes with emphysema/COPD once again noted with scarring in the right upper lobe. No acute bony findings. IMPRESSION: Overall no significant change small left apical pneumothorax with left chest tube in place. Dictated by: Mitul Islas MD 08/26/2020 05:59 Mitul Islas MD in [place] 08/26/2020 05:59
[2020-08-26 04:00] VITALS: BP 93/42; PULSE 67; RESP 16; TEMP 36.9; O2SAT 93
[2020-08-26 06:00] VITALS: BMI 14.8
--- NOTE | 2020-08-26 06:00 | XR_ITS ---
PROCEDURE: XR CHEST PORTABLE CLINICAL HISTORY: PTX Follow-up pneumothorax COMPARISON: CT CT CHEST WO/W CON from 08/03/2020 CR XR CHEST PORTABLE from 08/24/2020 CR XR CHEST PORTABLE from 08/25/2020 CR XR CHEST PORTABLE from 08/25/2020 FINDINGS: 5:42 a.m.. Left-sided chest tube remains in place with tiny residual left apical pneumothorax not significantly changed. Left subclavian central line tip region the SVC. No change diffuse emphysema with pulmonary fibrosis and mild cardiomegaly. No acute bony abnormalities. IMPRESSION: No change small left apical pneumothorax Dictated by: Mitul Islas MD 08/26/2020 06:18 Mitul Islas MD in [place] 08/26/2020 06:18
[2020-08-26 08:00] VITALS: BP 100/60; PULSE 66; RESP 17; TEMP 36.7; O2SAT 93
--- NOTE | 2020-08-26 08:29 | HMH.GSPN ---
Subjective Narrative: Patient had some shortness of breath overnight. Chest x-ray yesterday evening revealed no changes IN possible tiny apical pneumothorax. Repeat chest x-ray this morning is stable. There is no air leak. Progress Note: A&P (1) Pneumothorax, postoperative Status: Acute (2) Colon cancer Status: Acute (3) Smoker Status: Chronic Assessment and Plan for All Diagnoses:: Chest tube removed. Continue to monitor as an inpatient. Exam Vital signs and Labs for Last 24 Hours: Temp Pulse Resp BP Pulse Ox 98.4 F 67 16 93/42 L 93 L 08/26/20 04:00 08/26/20 04:00 08/26/20 04:00 08/26/20 04:00 08/26/20 04:00 I & O for Last 24 hours: Intake & Output 08/23/20 08/24/20 08/25/20 08/26/20 11:59 11:59 11:59 11:59 Intake Total 1676 / 1676 1324 / 1324 1222 / 1222 Output Total 300 / 300 1660 / 1660 Balance 1376 / 1376 -336 / -336 1202 / 1202 - -16 Weight 73 lb 76 lb 75 lb 6 oz 75 lb 6.017 oz
--- NOTE | 2020-08-26 12:14 | HMH.ACPN2 ---
Internal Medicine - PN: Subj *Date: 08/26/20 *Time: 12:14 Interval history: FAMILY MEDICINE: She feels better. Dr. Norris remove the chest tube this morning. See his note. Discharge is planned for tomorrow. Exam Vital signs and Labs for Last 24 Hours: Temp Pulse Resp BP Pulse Ox 98.1 F 66 17 100/60 L 93 L 08/26/20 08:00 08/26/20 08:00 08/26/20 08:00 08/26/20 08:00 08/26/20 08:00 I & O for Last 24 hours: Intake & Output 08/24/20 08/25/20 08/26/20 08/27/20 11:59 11:59 11:59 11:59 Intake Total 1324 / 1324 1222 / 1222 120 / 120 Output Total 1660 / 1660 Balance -336 / -336 1202 / 1202 104 / 104 Weight 76 lb 75 lb 6 oz 75 lb 6.017 oz - Constitutional no acute distress - *Routine Respiratory Exam Present: CTA bilaterally - *Routine Cardiovascular Exam Present: RRR - *Routine Extremities Exam Absent: edema Assessment and Plan (1) Pneumothorax, postoperative Status: Acute Category: Medical Code(s): J95.811 - Postprocedural pneumothorax (2) Colon cancer Status: Acute Category: Medical Code(s): C18.9 - Malignant neoplasm of colon, unspecified (3) Smoker Status: Chronic Category: Social Hx Code(s): F17.200 - Nicotine dependence, unspecified, uncomplicated - Assessment and plan all Dx Assessment and Plan for all problems:: She had some nausea last night and required some ondansetron. She is otherwise stable and likely ready for discharge tomorrow.
--- NOTE | 2020-08-26 15:30 | XR_ITS ---
PROCEDURE: XR CHEST 2V CLINICAL HISTORY: Pneumothorax COMPARISON: CR XR CHEST 2V from 03/05/[address] CHEST WO/W CON from 08/03/2020 CR XR CHEST PORTABLE from 08/25/2020 CR XR CHEST PORTABLE from 08/25/2020 CR XR CHEST PORTABLE from 08/26/2020 FINDINGS: Left-sided chest tube has been removed. There may be a small residual left apical pneumothorax with apical pleural distance measuring 7 mm versus overlying rib density.. Left subclavian Port-A-Cath is in place. There remains diffuse emphysematous changes with pulmonary fibrosis with mild cardiomegaly. There is a biliary stent in place. Scarring right upper lobe. IMPRESSION: Possible small residual left apical pneumothorax following chest tube removal versus rib density. Dictated by: Mitul Islas MD 08/27/2020 05:48 Mitul Islas MD in [place] 08/27/2020 05:48
[2020-08-26 16:00] VITALS: BP 100/52; PULSE 78; RESP 18; TEMP 36.6; O2SAT 96
--- NOTE | 2020-08-26 18:39 | PC.NURSE ---
pt has been stable this shift. No issues noted. On 3L NC. Gets OOB on her own to BSC. Required Morphine IV x 1 dose today. Left chest tube was discontinued this morning by Dr. Norris. Pt has not had any pain since it was discontinued. No issues noted.
[2020-08-26 20:00] VITALS: BP 95/50; PULSE 89; RESP 20; TEMP 36.6; O2SAT 92
[2020-08-27 02:13] VITALS: RESP 18; O2SAT 95
--- NOTE | 2020-08-27 03:33 | PC.NURSE ---
Patient rested well this shift. Friend at bedside during the night. Alert and oriented x4. Lungs decreased with some rhonchi upper lobes that clears slightly with cough. NC 3L humdified. V/S stable.Denies any pain. Mepilex on coccyx for prevention. Dressing on left upper back from chest tube removal on 08/26 that is CDI. Port in left upper chest has gomez needle in place. States was accessed on 08/22. [employer] nurse on 08/26 stated that patient did not want it pulled. Patient did void several times and had a BM this fit. Patient instructed to call for assistance. Call light within reach.
[2020-08-27 04:00] VITALS: BP 95/50; PULSE 82; RESP 20; TEMP 36.7; O2SAT 97
[2020-08-27 04:07] VITALS: BMI 14.9
--- NOTE | 2020-08-27 07:35 | XR_ITS ---
PROCEDURE: XR CHEST 2V CLINICAL HISTORY: FOLLOW UP PNEUMOTHORAX COMPARISON: CT CT CHEST WO/W CON from 08/03/2020 CR XR CHEST PORTABLE from 08/25/2020 CR XR CHEST PORTABLE from 08/26/2020 CR XR CHEST 2V from 08/26/2020 FINDINGS: There is a very tiny residual left apical pneumothorax. No change in the central line, emphysema, and pulmonary scarring and right biliary stent. IMPRESSION: Tiny left apical pneumothorax Dictated by: Mitul Islas MD 08/27/2020 10:06 Mitul Islas MD in [place] 08/27/2020 10:06
[2020-08-27 08:00] VITALS: BP 105/45; PULSE 71; RESP 18; TEMP 36.5; O2SAT 97
--- NOTE | 2020-08-27 08:22 | HMH.GSPN ---
Subjective Narrative: Patient doing well without complaints. Chest tube removed yesterday. Tolerated well. Progress Note: A&P (1) Pneumothorax, postoperative Status: Acute (2) Colon cancer Status: Acute (3) Smoker Status: Chronic Assessment and Plan for All Diagnoses:: Repeat chest x-ray this morning. If stable discharge home. Follow-up 1 week. Exam Vital signs and Labs for Last 24 Hours: Temp Pulse Resp BP Pulse Ox 98.1 F 82 20 95/50 L 97 08/27/20 04:00 08/27/20 04:00 08/27/20 04:00 08/27/20 04:00 08/27/20 04:00 I & O for Last 24 hours: Intake & Output 08/24/20 08/25/20 08/26/20 08/27/20 11:59 11:59 11:59 11:59 Intake Total 1324 / 1324 1222 / 1222 120 / 120 1267 / 1267 Output Total 1660 / 1660 Balance -336 / -336 1202 / 1202 104 / 104 1267 / 1267 Weight 76 lb 75 lb 6 oz 75 lb 6.017 oz 76 lb 2 oz
--- NOTE | 2020-08-27 09:20 | HMH.ACPN2 ---
Internal Medicine - PN: Subj *Date: 08/27/20 *Time: 09:20 Interval history: FAMILY MEDICINE: She rested okay. She is feeling well and ready for discharge. Dr. Norris has seen her and plans discharge. Exam Vital signs and Labs for Last 24 Hours: Temp Pulse Resp BP Pulse Ox 98.1 F 82 20 95/50 L 97 08/27/20 04:00 08/27/20 04:00 08/27/20 04:00 08/27/20 04:00 08/27/20 04:00 I & O for Last 24 hours: Intake & Output 08/24/20 08/25/20 08/26/20 08/27/20 11:59 11:59 11:59 11:59 Intake Total 1324 / 1324 1222 / 1222 120 / 120 1507 / 1507 Output Total 1660 / 1660 Balance -336 / -336 1202 / 1202 104 / 104 1507 / 1507 Weight 76 lb 75 lb 6 oz 75 lb 6.017 oz 76 lb 2 oz - Constitutional no acute distress - *Routine HEENT Exam Eye: Present: PERRL ENT: Present: mucous membranes moist - *Routine Respiratory Exam Present: CTA bilaterally - *Routine Cardiovascular Exam Present: RRR - *Routine Extremities Exam Absent: edema Assessment and Plan (1) Pneumothorax, postoperative Status: Acute Category: Medical Code(s): J95.811 - Postprocedural pneumothorax (2) Colon cancer Status: Acute Category: Medical Code(s): C18.9 - Malignant neoplasm of colon, unspecified (3) Smoker Status: Chronic Category: Social Hx Code(s): F17.200 - Nicotine dependence, unspecified, uncomplicated - Assessment and plan all Dx Assessment and Plan for all problems:: Discharge today. Follow-up with Dr. Norris and with [facility].
--- NOTE | 2020-08-27 11:11 | PC.NURSE ---
pt's room air saturation was 85%
[2020-08-27 11:12] VITALS: O2SAT 85
--- NOTE | 2020-08-27 11:28 | HMH.DCSUM ---
General - General Admission date:: 08/22/20 Discharge date: 08/27/20 HPI HPI: This 65-year-old white female with history of COPD and BMI of 14 with neurofibromatosis underwent right hemicolectomy by Dr. 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 She was taken the operating room on 08/22/2020 at which time she underwent placement of left subclavian PowerPort. Procedure went without incident but she was noted to have appreciable pneumothorax on postoperative imaging. Therefore plan was for chest tube and admission. Hospital Course Hospital Course: In the postanesthesia care unit patient had placement of left thoracostomy tube, 20 [place], which revealed reexpansion of the lung and no obvious air leak. She was admitted for inpatient management. The following day she did have a tiny apical pneumothorax but no obvious air leak. Chest tube was placed to waterseal. The following day she had some increasing size of apical pneumothorax and therefore her chest tube was placed to suction once again, this time at 40 cm. This ultimately resulted in near complete reexpansion of the lung with only a tiny apical pneumothorax. There was no air leak noted. Chest tube was then once again placed on waterseal. Chest x-ray showed stability over 24 hours on waterseal. Chest tube was removed on the morning of 08/26/2020. Chest x-ray several hours later revealed a very subtle improving tiny apical pneumothorax. She remained an inpatient and asymptomatic 24 hours post removal of her chest tube. Repeat PA and lateral chest x-ray on the morning of 08/27/2020 revealed improvement in the possible tiny left apical pneumothorax. Arrangements were made for discharge home at this time. Objective Vital signs: Temp Pulse Resp BP Pulse Ox 97.7 F 71 18 105/45 L 85 L 08/27/20 08:00 08/27/20 08:00 08/27/20 08:00 08/27/20 08:00 08/27/20 11:12 DS: Diagnosis - Discharge Diagnosis (1) Pneumothorax, postoperative Status: Acute (2) Colon cancer Status: Acute (3) Smoker Status: Chronic Discharge Plan - Patient Discharge Instructions ACTIVITY: Continue current activity DIET: advance to your usual diet Patient Instructions: How to Care for a Surgical Wound, Serious Ways to Stop Smoking, Tips to Help You Stop Smoking, DI for Pneumothorax, DI for Surgical Site Infection, DI for Chest Tube Insertion - Follow up Plan Follow up with: Jaxon Norris MD [Staff Physician] - 1 week Disposition: Home, Self-Fdc Medications: Home Medications Medication Instructions Recorded Confirmed Type promethazine 25 mg tablet 25 mg PO Q6H PRN tab 03/29/20 08/22/20 History Aspirin [Low Dose Aspirin EC] 81 mg PO DAILY 05/01/20 08/22/20 History Atorvastatin Calcium [Lipitor 40mg 40 mg PO DAILY 05/01/20 08/22/20 History Tab] Metoprolol Succinate [Metoprolol 25 mg PO DAILY 05/01/20 08/22/20 History Succinate 25mg Tablet*] ondansetron HCL [Ondansetron 8mg 1 tab PO Q6H PRN 08/22/20 08/22/20 History tab*] Prescriptions/Medication Reconciliation: Continued promethazine 25 mg tablet 25 mg PO Q6H PRN tab PRN Reason: Nausea And Vomiting Metoprolol Succinate [Metoprolol Succinate 25mg Tablet*] 25 mg PO DAILY Atorvastatin Calcium [Lipitor 40mg Tab] 40 mg PO DAILY Aspirin [Low Dose Aspirin EC] 81 mg PO DAILY ondansetron HCL [Ondansetron 8mg tab*] 1 tab PO Q6H PRN PRN Reason: Nausea And Vomiting - Problem Reconciliation Problems Reviewed?: Yes
--- NOTE | 2020-08-27 11:37 | SW/DCPLANNER ---
Addendum entered by Mary Anne Mancilla 08/27/20 13:10: Alena with [facility] stated that patient information has been reviewed and portable O2 tank will be delivered to [facility]. Original Note: Patient information and order has been faxed to [facility] for portable O2 and home O2. Patient is currently at 85% on room air. I will follow up with [facility] once patient information is reviewed. Patient will discharge later today.
== END 2020-08-27 13:30 | disposition home or self-care (01) | DRG 200 ==
LOC: 2ND 14:22
PROVIDERS: Admitting Provider Surgery; PCP Family Medicine; Visit Provider Surgery
PROC: 0W9B30Z Drainage of Left Pleural Cavity with Drainage Device, Percutaneous Approach (ICD-10-PCS; CPT 32551; principal; 2020-08-22 10:30)
DX: J95.811 Postprocedural pneumothorax (principal); C18.0 Malignant neoplasm of cecum; Z72.0 Tobacco use; Z79.899 Other long term (current) drug therapy; Z88.8 Allergy status to other drugs, medicaments and biological substances; Z88.0 Allergy status to penicillin; J44.9 Chronic obstructive pulmonary disease, unspecified; Z90.49 Acquired absence of other specified parts of digestive tract
CPT/HCPCS: 32551; 36561; 36415; 71045; 71046; 77001; 80048; 80053; 85025; 86328; 94640; 94761; 96374; C1788; J1642; J2405

== ENCOUNTER 2020-08-30 09:00 | Outpatient (CLI) | payer OTHER, SELFPAY ==
[2020-08-30] VITALS (24 sets, daily range): BP systolic 104–136; BP diastolic 45–95; PULSE 56–70; RESP 18; O2SAT 96
== END 2020-08-30 16:25 | disposition home or self-care (01) ==
LOC: INF 09:08
PROVIDERS: Visit Provider Internal Medicine Medical Oncology
DX: Z51.11 Encounter for antineoplastic chemotherapy (principal); C18.9 Malignant neoplasm of colon, unspecified
CPT/HCPCS: 96411; 96413; 96415; 96417; J0640; J9263; Q0166

== ENCOUNTER → 2020-09-03 10:02 | Outpatient (CLI) | payer OTHER, SELFPAY ==
--- NOTE | 2020-09-03 10:05 | XR_ITS ---
PROCEDURE: XR CHEST 2V CLINICAL HISTORY: pneumo Follow-up pneumothorax COMPARISON: CT CT CHEST WO/W CON from 08/03/2020 CR XR CHEST PORTABLE from 08/26/2020 CR XR CHEST 2V from 08/26/2020 CR XR CHEST 2V from 08/27/2020 FINDINGS: No evidence of pneumothorax. Previously noted tiny apical pneumothorax on the left has resolved. MediPort catheter tip is in the region the SVC. There is diffuse emphysematous change. Bullous changes are present in the right upper lobe. IMPRESSION: Resolved left apical pneumothorax Dictated by: Mitul Islas MD 09/03/2020 11:02 Mitul Islas MD in [place] 09/03/2020 11:02
== END ==
PROVIDERS: PCP Family Medicine; Visit Provider Surgery
DX: J95.811 Postprocedural pneumothorax (principal)
CPT/HCPCS: 71046

== ENCOUNTER 2020-09-18 08:09 | Outpatient (CLI) | payer OTHER, SELFPAY ==
[2020-09-18] VITALS (22 sets, daily range): BP systolic 90–122; BP diastolic 40–65; PULSE 62–82; RESP 18; BMI 14.6
[2020-09-18 08:38] LABS: Basophils # 0.1 K/mm3 (0-0.2); Basophils % 1.1 % (0.1-2.0); Eosinophils # 0.2 K/mm3 (0.0-0.4); Eosinophils % 2.8 % (0.1-12.0); Hemoglobin 14.4 g/dL (12.2-16.2); Lymphocytes # 1.3 K/mm3 (0.7-4.5); Mean Corpuscular HGB Conc 32.8 g/dL (31.8-35.4); Mean Corpuscular Volume 88.5 fl (81-99); Mean Platelet Volume 7.6 fl (7.4-10.4); Monocytes # 0.9 K/mm3 (0.1-1.0); Monocytes % 14.4 % (1.7-9.3); Neutrophils # 3.6 K/mm3 (1.8-7.8); Neutrophils % 59.7 % (37.0-80.0); Platelet Count 256 K/mm3 (142-424); Red Blood Count 4.97 M/mm3 (4.20-5.40); Red Cell Distribution Width 15.1 % (11.5-17.5); White Blood Count 6.1 K/mm3 (4.8-10.8)
[2020-09-18 08:40] LABS: Chloride 103 mmol/L (98-107); Sodium 137 mmol/L (136-145)
[2020-09-18 08:41] LABS: Potassium 4.4 mmoL/L (3.5-5.1)
[2020-09-18 08:43] LABS: Alanine Aminotransferase 25 U/L (12-78); Albumin Level 4.1 g/dl (3.5-5.0); Albumin/Globulin Ratio 1.3 (1.1-1.8); Alkaline Phosphatase 147 U/L (38-126); Anion Gap 9.4 mEq/L (5-15); Aspartate Amino Transferase 48 U/L (14-36); Bilirubin,Total 0.4 mg/dl (0.2-1.3); Blood Urea Nitrogen 11 mg/dl (7-17); Carbon Dioxide 29 mmol/L (22.0-30.0); Creatinine Clearance Estimated 31 mL/min (50-200); Estimated Glomerular Filt Rate 101 ml/min (>60); GFR (African American) 122 ML/MIN (>60); Globulin 3.2 g/dL (1.3-3.2); Total Protein,Serum 7.3 g/dl (6.3-8.2)
[2020-09-18 08:44] LABS: Calcium 9.4 mg/dl (8.4-10.2); Glucose 105 mg/dl (74-100)
== END 2020-09-18 15:58 | disposition home or self-care (01) ==
LOC: INF 08:09
PROVIDERS: Visit Provider Internal Medicine Medical Oncology
DX: Z51.11 Encounter for antineoplastic chemotherapy (principal); C18.9 Malignant neoplasm of colon, unspecified
CPT/HCPCS: 80053; 85025; 96411; 96413; 96415; 96417; J0640; J9190; J9263; Q0166

== ENCOUNTER 2020-10-04 09:00 | Outpatient (CLI) | payer OTHER, SELFPAY ==
[2020-10-04] VITALS (24 sets, daily range): BP systolic 101–127; BP diastolic 46–57; PULSE 59–78; RESP 18; TEMP 36.2; O2SAT 94; BMI 14.4
[2020-10-04 09:39] LABS: Basophils % 1.2 % (0.1-2.0); Eosinophils # 0.1 K/mm3 (0.0-0.4); Eosinophils % 1.8 % (0.1-12.0); Hematocrit 42.3 % (37.0-47.0); Lymphocytes # 1.6 K/mm3 (0.7-4.5); Lymphocytes % 45.8 % (10-50); Mean Corpuscular HGB Conc 33.2 g/dL (31.8-35.4); Mean Corpuscular Hemoglobin 29.8 pg (27.0-31.2); Mean Corpuscular Volume 89.8 fl (81-99); Mean Platelet Volume 8.4 fl (7.4-10.4); Monocytes # 0.6 K/mm3 (0.1-1.0); Monocytes % 15.8 % (1.7-9.3); Neutrophils # 1.3 K/mm3 (1.8-7.8); Neutrophils % 35.4 % (37.0-80.0); Platelet Count 250 K/mm3 (142-424); Red Blood Count 4.71 M/mm3 (4.20-5.40); Red Cell Distribution Width 15.5 % (11.5-17.5); White Blood Count 3.5 K/mm3 (4.8-10.8)
[2020-10-04 10:18] LABS: Chloride 103 mmol/L (98-107); Potassium 4.3 mmoL/L (3.5-5.1); Sodium 137 mmol/L (136-145)
[2020-10-04 10:20] LABS: Alanine Aminotransferase 215 U/L (12-78); Aspartate Amino Transferase 188 U/L (14-36); Blood Urea Nitrogen 9 mg/dl (7-17); Creatinine Clearance Estimated 31 mL/min (50-200); Estimated Glomerular Filt Rate 125 ml/min (>60); GFR (African American) 151 ML/MIN (>60)
[2020-10-04 10:21] LABS: Albumin Level 4.1 g/dl (3.5-5.0); Albumin/Globulin Ratio 1.2 (1.1-1.8); Alkaline Phosphatase 410 U/L (38-126); Anion Gap 11.3 mEq/L (5-15); Bilirubin,Total 0.5 mg/dl (0.2-1.3); Calcium 9.2 mg/dl (8.4-10.2); Carbon Dioxide 27 mmol/L (22.0-30.0); Globulin 3.3 g/dL (1.3-3.2); Glucose 102 mg/dl (74-100); Total Protein,Serum 7.4 g/dl (6.3-8.2)
== END 2020-10-04 16:40 | disposition home or self-care (01) ==
LOC: INF 09:09
PROVIDERS: Visit Provider Internal Medicine Medical Oncology
DX: Z51.11 Encounter for antineoplastic chemotherapy (principal); C18.9 Malignant neoplasm of colon, unspecified
CPT/HCPCS: 80053; 85025; 96411; 96413; 96415; 96417; J0640; J9263; Q0166

== ENCOUNTER → 2020-10-17 09:45 | Outpatient (CLI) | payer OTHER, SELFPAY ==
--- NOTE | 2020-10-17 09:46 | CA_ITS ---
APPROVED REPORT EXAM: Comprehensive 2D, Doppler, and color-flow Echocardiogram [employer] Accessories: Carmenza Billingsley Rcs, RVS Ht: 5 ft 0 in Wt: 75lbs BSA: 1.23 BP: 108/61 mmHg Indications: follow up pericardial effusion, colon, CA, Chemotherapy, abn ekg, s/p port placement with pneumothorax 2D Dimensions Aortic Root 2.14 cm F: 2.7 - 3.3 Left Atrium 2.86 cm F: 2.7 - 3.8 LVOT 1.34 cm (M/F) 1.5-2.5 M-Mode Dimensions RVDd 1.55 cm (0.9-2.6) LA Diam 2.50 cm (1.9-4.0) LVDd 3.35 cm (3.5-5.7) Ao Diam 2.56 cm (2.0-3.7) LVDs 2.04 cm (3.5-5.7) IVSd 0.72 cm (0.6-1.1) PWd 0.70 cm (0.6-1.1) EF (Teich) 70.70% EPSs 0.19 cm FS 39.10% EDV (Teich) 45.80 mL ESV (Teich) 13.40 mL LV Diastology E Decel Time 147.00 (160-240 msec) E/A Ratio 0.8 MED E' 7.10 (< 7 cm/sec) MED A' 12.70 cm/s E'/MED E' Ratio 9.38 (>14) LAT E' 7.60 (<10 cm/sec) LAT A' 15.60 cm/s E/LAT E' Ratio 8.76 (>14) Aortic Valve AO Peak GR. 3.80 mmHg Mitral Valve MV E Max Royce. 67.00 (40-130 cm/s) MV A Velocity 87.00 (40-130 cm/s) E/A Ratio 0.76 MV Decel. Time 147.00 (160-240 ms) MV PHT 43.00 ms Pulmonary Valve PV Peak Velocity 73.00 (50-150 cm/s) Tricuspid Valve TR P. Velocity 293.00 cm/s RAP Estimate 10.00 mmHg RVSP 44.30 mmHg Left Ventricle Left atrium is mildly enlarged, left ventricle is normal size, mild concentric left ventricular hypertrophy, visually estimated ejection fraction 55% with no regional wall motion abnormality, grade 1 diastolic dysfunction seen without tissue Doppler evidence of raise left atrial pressure. Right Ventricle Right atrium and right ventricle mildly enlarged with normal contractility. Aortic Valve Aortic valve is minimally thickened and fibrosed, there is no aortic stenosis or aortic insufficiency. Mitral Valve Mitral valve is grossly normal, there is mild mitral regurgitation. Tricuspid Valve Tricuspid valve grossly normal, there is mild tricuspid regurgitation, calculated right ventricular systolic pressure is 44 mmHg. Pulmonic Valve Pulmonic valve is poorly visualized. Great Vessels Aortic root is normal size. Pericardium Small to moderate-sized pericardial effusion noted. Conclusion 1. Mild biatrial enlargement, normal left ventricular size, mild concentric left ventricular hypertrophy, visually estimated ejection fraction 55% with no regional wall motion abnormality, grade 1 diastolic dysfunction seen without tissue Doppler evidence of raise left atrial pressure. 2. Mildly enlarged right ventricle with normal contractility. 3. Mild mitral and tricuspid regurgitation, calculated right ventricular systolic pressure is 44 mmHg. 4. Small to moderate size pericardial effusion without echocardiographic evidence of tamponade physiology. Electronically signed by : Obed Velazquez, 10/17/2020 18:22:04
== END ==
PROVIDERS: PCP Family Medicine; Visit Provider Internal Medicine Cardiovascular Disease
DX: R06.00 Dyspnea, unspecified (principal); R42 Dizziness and giddiness; R94.31 Abnormal electrocardiogram [ECG] [EKG]; R09.89 Other specified symptoms and signs involving the circulatory and respiratory systems; Z82.49 Family history of ischemic heart disease and other diseases of the circulatory system
CPT/HCPCS: 93306

== ENCOUNTER 2020-10-18 08:26 | Outpatient (CLI) | payer OTHER, SELFPAY ==
[2020-10-18 08:29] VITALS: BMI 14.2
[2020-10-18 08:41] LABS: Basophils % 1.2 % (0.1-2.0); Eosinophils # 0.1 K/mm3 (0.0-0.4); Eosinophils % 1.6 % (0.1-12.0); Hematocrit 44.3 % (37.0-47.0); Hemoglobin 14.7 g/dL (12.2-16.2); Lymphocytes # 1.6 K/mm3 (0.7-4.5); Lymphocytes % 50.9 % (10-50); Mean Corpuscular HGB Conc 33.3 g/dL (31.8-35.4); Mean Corpuscular Hemoglobin 29.3 pg (27.0-31.2); Mean Corpuscular Volume 88.1 fl (81-99); Mean Platelet Volume 7.6 fl (7.4-10.4); Monocytes # 0.4 K/mm3 (0.1-1.0); Monocytes % 11.9 % (1.7-9.3); Neutrophils # 1.1 K/mm3 (1.8-7.8); Neutrophils % 34.4 % (37.0-80.0); Platelet Count 141 K/mm3 (142-424); Red Blood Count 5.03 M/mm3 (4.20-5.40); Red Cell Distribution Width 16.5 % (11.5-17.5); White Blood Count 3.1 K/mm3 (4.8-10.8)
[2020-10-18 08:43] LABS: Chloride 103 mmol/L (98-107); Sodium 136 mmol/L (136-145)
[2020-10-18 08:44] LABS: Potassium 4.3 mmoL/L (3.5-5.1)
[2020-10-18 08:46] LABS: Alanine Aminotransferase 37 U/L (12-78); Albumin Level 4.2 g/dl (3.5-5.0); Albumin/Globulin Ratio 1.3 (1.1-1.8); Alkaline Phosphatase 208 U/L (38-126); Anion Gap 10.3 mEq/L (5-15); Aspartate Amino Transferase 52 U/L (14-36); Bilirubin,Total 0.6 mg/dl (0.2-1.3); Blood Urea Nitrogen 13 mg/dl (7-17); Carbon Dioxide 27 mmol/L (22.0-30.0); Creatinine Clearance Estimated 30 mL/min (50-200); Estimated Glomerular Filt Rate 101 ml/min (>60); GFR (African American) 122 ML/MIN (>60); Globulin 3.3 g/dL (1.3-3.2); MANUAL DIFFERENTIAL MANUAL DIFFERENTIAL (MANUAL DIFF); Total Protein,Serum 7.5 g/dl (6.3-8.2)
[2020-10-18 08:47] LABS: Calcium 9.5 mg/dl (8.4-10.2); Glucose 127 mg/dl (74-100)
[2020-10-18 09:23] LABS: Eosinophils % 3 % (0-3); Lymphocytes % 44 % (10-50); Monocytes % 15 % (2-9); Neutrophils % 38 % (42-76); Total Cells Counted 100
[2020-10-18 09:24] LABS: Platelet Estimate Normal; RBC Morphology Normal
== END 2020-10-18 09:35 | disposition home or self-care (01) ==
LOC: INF 08:26
PROVIDERS: Visit Provider Internal Medicine Medical Oncology
DX: Z51.11 Encounter for antineoplastic chemotherapy (principal); C18.9 Malignant neoplasm of colon, unspecified
CPT/HCPCS: 80053; 85007; 85025; J1642

== ENCOUNTER 2020-10-25 08:05 | Outpatient (CLI) | payer OTHER, SELFPAY ==
[2020-10-25] VITALS (20 sets, daily range): BP systolic 91–126; BP diastolic 40–63; PULSE 65–84; RESP 18; TEMP 36.2; O2SAT 94; BMI 14.3
[2020-10-25 08:31] LABS: Basophils # 0.1 K/mm3 (0-0.2); Basophils % 2.1 % (0.1-2.0); Eosinophils # 0.1 K/mm3 (0.0-0.4); Eosinophils % 1.5 % (0.1-12.0); Hematocrit 42.9 % (37.0-47.0); Hemoglobin 13.8 g/dL (12.2-16.2); Lymphocytes # 1.6 K/mm3 (0.7-4.5); Lymphocytes % 37.1 % (10-50); Mean Corpuscular HGB Conc 32.2 g/dL (31.8-35.4); Mean Corpuscular Hemoglobin 29.5 pg (27.0-31.2); Mean Corpuscular Volume 91.6 fl (81-99); Mean Platelet Volume 7.7 fl (7.4-10.4); Neutrophils # 1.5 K/mm3 (1.8-7.8); Neutrophils % 35.3 % (37.0-80.0); Platelet Count 212 K/mm3 (142-424); Red Blood Count 4.68 M/mm3 (4.20-5.40); Red Cell Distribution Width 16.3 % (11.5-17.5); White Blood Count 4.2 K/mm3 (4.8-10.8)
[2020-10-25 08:33] LABS: Chloride 106 mmol/L (98-107)
[2020-10-25 08:34] LABS: Potassium 4.2 mmoL/L (3.5-5.1); Sodium 139 mmol/L (136-145)
[2020-10-25 08:36] LABS: Alanine Aminotransferase 36 U/L (12-78); Alkaline Phosphatase 224 U/L (38-126); Aspartate Amino Transferase 46 U/L (14-36); Bilirubin,Total 0.4 mg/dl (0.2-1.3); Blood Urea Nitrogen 9 mg/dl (7-17); Creatinine Clearance Estimated 30 mL/min (50-200); Estimated Glomerular Filt Rate 85 ml/min (>60); GFR (African American) 102 ML/MIN (>60); MANUAL DIFFERENTIAL MANUAL DIFFERENTIAL (MANUAL DIFF)
[2020-10-25 08:37] LABS: Albumin Level 4.1 g/dl (3.5-5.0); Albumin/Globulin Ratio 1.2 (1.1-1.8); Anion Gap 10.2 mEq/L (5-15); Calcium 9.5 mg/dl (8.4-10.2); Carbon Dioxide 27 mmol/L (22.0-30.0); Globulin 3.4 g/dL (1.3-3.2); Glucose 103 mg/dl (74-100); Total Protein,Serum 7.5 g/dl (6.3-8.2)
[2020-10-25 09:37] LABS: Lymphocytes % 31 % (10-50); Monocytes % 29 % (2-9); Neutrophils % 40 % (42-76); Platelet Estimate Normal; RBC Morphology Normal; Total Cells Counted 100
== END 2020-10-25 15:25 | disposition home or self-care (01) ==
LOC: INF 08:07
PROVIDERS: Visit Provider Internal Medicine Medical Oncology
DX: Z51.11 Encounter for antineoplastic chemotherapy (principal); C18.9 Malignant neoplasm of colon, unspecified
CPT/HCPCS: 80053; 85007; 85025; 96411; 96413; 96415; 96417; J0640; J8501; J9190; J9263; Q0166

== ENCOUNTER 2020-11-16 08:05 | Outpatient (CLI) | payer OTHER, SELFPAY ==
[2020-11-16] VITALS (23 sets, daily range): BP systolic 85–134; BP diastolic 33–85; PULSE 51–90; RESP 18–20; TEMP 36.4; O2SAT 98–100; BMI 14.6
[2020-11-16 08:27] LABS: Basophils # 0.1 K/mm3 (0-0.2); Basophils % 1.5 % (0.1-2.0); Eosinophils # 0.1 K/mm3 (0.0-0.4); Eosinophils % 2.3 % (0.1-12.0); Hematocrit 43.5 % (37.0-47.0); Hemoglobin 13.7 g/dL (12.2-16.2); Lymphocytes # 1.6 K/mm3 (0.7-4.5); Lymphocytes % 37.3 % (10-50); Mean Corpuscular HGB Conc 31.6 g/dL (31.8-35.4); Mean Corpuscular Hemoglobin 30.1 pg (27.0-31.2); Mean Corpuscular Volume 95.3 fl (81-99); Mean Platelet Volume 7.9 fl (7.4-10.4); Monocytes # 0.6 K/mm3 (0.1-1.0); Monocytes % 13.3 % (1.7-9.3); Neutrophils % 45.6 % (37.0-80.0); Platelet Count 221 K/mm3 (142-424); Red Blood Count 4.56 M/mm3 (4.20-5.40); Red Cell Distribution Width 16.7 % (11.5-17.5); White Blood Count 4.3 K/mm3 (4.8-10.8)
[2020-11-16 08:28] LABS: Chloride 106 mmol/L (98-107); Sodium 137 mmol/L (136-145)
[2020-11-16 08:29] LABS: Potassium 3.7 mmoL/L (3.5-5.1)
[2020-11-16 08:31] LABS: Alanine Aminotransferase 27 U/L (12-78); Alkaline Phosphatase 225 U/L (38-126); Anion Gap 8.7 mEq/L (5-15); Aspartate Amino Transferase 29 U/L (14-36); Bilirubin,Total 0.4 mg/dl (0.2-1.3); Blood Urea Nitrogen 5 mg/dl (7-17); Carbon Dioxide 26 mmol/L (22.0-30.0); Creatinine Clearance Estimated 31 mL/min (50-200); Estimated Glomerular Filt Rate 125 ml/min (>60); GFR (African American) 151 ML/MIN (>60)
[2020-11-16 08:32] LABS: Albumin Level 3.9 g/dl (3.5-5.0); Albumin/Globulin Ratio 1.3 (1.1-1.8); Glucose 119 mg/dl (74-100); Total Protein,Serum 6.9 g/dl (6.3-8.2)
== END 2020-11-16 15:34 | disposition home or self-care (01) ==
LOC: INF 08:07
PROVIDERS: Visit Provider Internal Medicine Medical Oncology
DX: Z51.11 Encounter for antineoplastic chemotherapy (principal); C18.9 Malignant neoplasm of colon, unspecified
CPT/HCPCS: 80053; 85025; 96411; 96413; 96415; 96417; J0640; J8501; J9190; J9263; Q0166

== ENCOUNTER 2020-11-29 09:01 | Outpatient (CLI) | payer OTHER, SELFPAY ==
[2020-11-29] VITALS (18 sets, daily range): BP systolic 93–123; BP diastolic 40–60; PULSE 71–98; RESP 18–20; TEMP 36.2; O2SAT 94; BMI 14.8
[2020-11-29 09:21] LABS: Basophils # 0.1 K/mm3 (0-0.2); Basophils % 0.7 % (0.1-2.0); Eosinophils # 0.1 K/mm3 (0.0-0.4); Eosinophils % 1.5 % (0.1-12.0); Hematocrit 43.1 % (37.0-47.0); Hemoglobin 13.5 g/dL (12.2-16.2); Lymphocytes # 1.4 K/mm3 (0.7-4.5); Mean Corpuscular HGB Conc 31.3 g/dL (31.8-35.4); Mean Corpuscular Hemoglobin 30.6 pg (27.0-31.2); Mean Corpuscular Volume 97.7 fl (81-99); Mean Platelet Volume 8.2 fl (7.4-10.4); Monocytes # 0.7 K/mm3 (0.1-1.0); Monocytes % 10.1 % (1.7-9.3); Neutrophils # 4.8 K/mm3 (1.8-7.8); Neutrophils % 67.7 % (37.0-80.0); Platelet Count 118 K/mm3 (142-424); Red Blood Count 4.42 M/mm3 (4.20-5.40); Red Cell Distribution Width 16.7 % (11.5-17.5); White Blood Count 7.1 K/mm3 (4.8-10.8)
[2020-11-29 09:24] LABS: Chloride 108 mmol/L (98-107); Sodium 140 mmol/L (136-145)
[2020-11-29 09:27] LABS: Alanine Aminotransferase 27 U/L (12-78); Albumin Level 3.5 g/dl (3.5-5.0); Albumin/Globulin Ratio 1.1 (1.1-1.8); Alkaline Phosphatase 165 U/L (38-126); Aspartate Amino Transferase 42 U/L (14-36); Bilirubin,Total 0.5 mg/dl (0.2-1.3); Blood Urea Nitrogen 7 mg/dl (7-17); Carbon Dioxide 28 mmol/L (22.0-30.0); Creatinine Clearance Estimated 31 mL/min (50-200); Estimated Glomerular Filt Rate 125 ml/min (>60); GFR (African American) 151 ML/MIN (>60); Globulin 3.1 g/dL (1.3-3.2); Total Protein,Serum 6.6 g/dl (6.3-8.2)
[2020-11-29 09:28] LABS: Glucose 115 mg/dl (74-100)
== END 2020-11-29 14:50 | disposition home or self-care (01) ==
LOC: INF 09:01
PROVIDERS: Visit Provider Internal Medicine Medical Oncology
DX: Z51.11 Encounter for antineoplastic chemotherapy (principal); C18.9 Malignant neoplasm of colon, unspecified
CPT/HCPCS: 80053; 85025; 96411; 96413; 96415; 96417; J0640; J8501; J9190; J9263; Q0166

== ENCOUNTER → 2020-12-12 09:52 | Outpatient (CLI) | payer OTHER, SELFPAY ==
--- NOTE | 2020-12-12 | CT_ITS ---
PROCEDURE: CT ABDOMEN PELVIS WO/W CON CLINICAL INDICATION: COLON CANCER Follow up Pt had liver stents placed on 11/26/20 at [facility] COMPARISON: CT CT ABDOMEN PELVIS W CON from 03/02/2020 MR MR ABDOMEN WO CON from 03/27/2020 RF FL ERCP from 05/07/[address] ABDOMEN PELVIS W CON from 06/15/2020 TECHNIQUE: IV Contrast: 75ML Isovue 370 Oral Contrast 450ml Redicat Axial images obtained with sagittal and coronal reformats. All CT scans at the facility use one or more dose reduction, viz: automated exposure control, ma/kV adjustment per patient size (including targeted exams where dose is matched to indication, i.e. head), or iterative reconstruction technique. FINDINGS: Pericardial thickening noted along the inferior aspect of the heart consistent with pericardial effusion measuring to 17 mm in thickness slightly increased in volume compared to 06/15/2020. There is diffuse pneumobilia. On the unenhanced images there is some branching areas of increased density in the right hepatic lobe and could be related to contrast within the biliary tree from recent intervention. Please correlate with surgical history. Periportal edema is noted. There is a biliary stent present within the common bile duct. Through this stent there is a drainage catheter with the proximal aspect looped in the bile duct within the left hepatic lobe and the distal aspect looped in the region of the duodenum. There has been improvement in the biliary ductal dilatation. Low-density changes are present in the periportal region centrally consistent with periportal edema. There is some minimal biliary dilatation involving the right hepatic lobe. Increased soft tissue density is present around the distal aspect of the stent suspicious for soft tissue mass at the ampulla/pancreatic head/duodenum. No focal liver lesion is evident. The spleen and adrenal glands have an unremarkable appearance. The pancreatic body and tail are unremarkable. Status post hemicolectomy of the cecum and ileocecal region. There are fluid-filled loops of small bowel throughout some of which are some prominent measuring up to 4.7 cm in diameter within the pelvic region. There are few scattered air-fluid levels. There is mild diffuse osteopenia. Soft tissue nodule is present in the left anterior pelvic region just lateral to the region of the symphysis pubis and also 1 at the mons pubis on the left. These are nonspecific and could be due to sebaceous cyst. These are not significantly changed. IMPRESSION: 1. No convincing evidence of metastatic disease of the liver or adrenal glands. 2. Interval stent placement it within the common bile duct and left biliary tree with pneumobilia. Increased soft tissue density is present along the distal aspect of the stent possibly due to a duodenal/ampullary or pancreatic head mass. Please correlate with recent procedure and endoscopic history. 3. Status post right hemicolectomy. 4. Prominent small bowel loops are present with scattered air-fluid levels. These findings may be due to ileus. Bowel loops are most prominent in the pelvic region but do change in caliber on delayed images. Please correlate with clinical findings. Dictated by: Mitul Islas MD 12/13/2020 09:53 Mitul Islas MD in [place] 12/13/2020 09:53
--- NOTE | 2020-12-12 | CT_ITS ---
PROCEDURE: CT CHEST WO/W CON CLINCAL INDICATION: COLON CANCER Follow up Pt had liver stents placed on 11/26/[address] [facility] Prior on pacs COMPARISON: CT CT CHEST WO/W CON from 08/03/2020 TECHNIQUE: IV Contrast: 75ml Isovue 370 Axial images obtained with sagittal and coronal reformats. All CT scans at the facility use one or more dose reduction, viz: automated exposure control, ma/kV adjustment per patient size (including targeted exams where dose is matched to indication, i.e. head), or iterative reconstruction technique. FINDINGS: HEART AND MEDIASTINAL STRUCTURES: There are atherosclerotic changes of the aorta with calcific plaque. No evidence of aortic aneurysm or dissection. No evidence of central pulmonary embolus. No mediastinal or hilar mass. LUNGS AND PLEURAL SPACES: Centrilobular emphysematous changes are present with scattered areas of scarring. Pleural parenchymal thickening noted in the upper lobes posteriorly on both sides similar compared to the previous exam. No suspicious nodules apparent. No effusions or infiltrates. BONY STRUCTURES: Mid upper thoracic scoliosis convex right. No bony destructive process lytic or blastic change. UPPER ABDOMEN: See abdomen report ADDITIONAL FINDINGS: No other significant abnormalities. IMPRESSION: Stable CT appearance of the chest. No convincing evidence of metastatic disease. Severe emphysematous changes with scattered areas of scarring which appear stable. Dictated by: Mitul Islas MD 12/13/2020 09:24 Mitul Islas MD in [place] 12/13/2020 09:24
[2020-12-12 09:40] VITALS: BMI 14.8
[2020-12-12 09:59] LABS: Basophils # 0.1 K/mm3 (0-0.2); Basophils % 1.4 % (0.1-2.0); Eosinophils # 0.1 K/mm3 (0.0-0.4); Eosinophils % 1.9 % (0.1-12.0); Hemoglobin 13.2 g/dL (12.2-16.2); Lymphocytes # 1.4 K/mm3 (0.7-4.5); Lymphocytes % 34.3 % (10-50); Mean Corpuscular HGB Conc 32.9 g/dL (31.8-35.4); Mean Corpuscular Hemoglobin 31.1 pg (27.0-31.2); Mean Corpuscular Volume 94.6 fl (81-99); Mean Platelet Volume 7.7 fl (7.4-10.4); Monocytes # 0.8 K/mm3 (0.1-1.0); Monocytes % 19.2 % (1.7-9.3); Neutrophils # 1.8 K/mm3 (1.8-7.8); Neutrophils % 43.2 % (37.0-80.0); Platelet Count 147 K/mm3 (142-424); Red Blood Count 4.23 M/mm3 (4.20-5.40); Red Cell Distribution Width 16.6 % (11.5-17.5); White Blood Count 4.1 K/mm3 (4.8-10.8)
[2020-12-12 10:07] LABS: Chloride 105 mmol/L (98-107); Potassium 3.8 mmoL/L (3.5-5.1); Sodium 134 mmol/L (136-145)
[2020-12-12 10:10] LABS: Alanine Aminotransferase 25 U/L (12-78); Albumin Level 3.4 g/dl (3.5-5.0); Albumin/Globulin Ratio 1.3 (1.1-1.8); Alkaline Phosphatase 195 U/L (38-126); Anion Gap 7.8 mEq/L (5-15); Aspartate Amino Transferase 37 U/L (14-36); Bilirubin,Total 0.7 mg/dl (0.2-1.3); Blood Urea Nitrogen 8 mg/dl (7-17); Calcium 8.8 mg/dl (8.4-10.2); Carbon Dioxide 25 mmol/L (22.0-30.0); Creatinine Clearance Estimated 31 mL/min (50-200); Estimated Glomerular Filt Rate 161 ml/min (>60); GFR (African American) 195 ML/MIN (>60); Globulin 2.7 g/dL (1.3-3.2); Glucose 103 mg/dl (74-100); Total Protein,Serum 6.1 g/dl (6.3-8.2)
== END ==
PROVIDERS: PCP Family Medicine; Visit Provider Internal Medicine Medical Oncology
DX: C18.9 Malignant neoplasm of colon, unspecified (principal)
CPT/HCPCS: 71270; 74178; 80053; 85025; J1642; Q9967

== ENCOUNTER 2020-12-14 09:12 | Outpatient (CLI) | payer OTHER, SELFPAY ==
[2020-12-14] VITALS (9 sets, daily range): BP systolic 92–112; BP diastolic 51–66; PULSE 76–88; RESP 18; TEMP 36.1; O2SAT 97–99
== END 2020-12-14 13:29 | disposition home or self-care (01) ==
LOC: INF 09:12
PROVIDERS: Visit Provider Internal Medicine Medical Oncology
DX: Z51.11 Encounter for antineoplastic chemotherapy (principal); C18.9 Malignant neoplasm of colon, unspecified
CPT/HCPCS: 96411; 96413; 96415; 96417; J0640; J1642; J9190; J9263; Q0166

== ENCOUNTER 2020-12-27 09:00 | Outpatient (CLI) | payer OTHER, SELFPAY ==
[2020-12-27] VITALS (17 sets, daily range): BP systolic 88–126; BP diastolic 45–63; PULSE 67–87; RESP 18–20; TEMP 36.2; O2SAT 96; BMI 14.7
[2020-12-27 09:17] LABS: Basophils # 0.1 K/mm3 (0-0.2); Basophils % 1.2 % (0.1-2.0); Eosinophils % 0.6 % (0.1-12.0); Hematocrit 38.6 % (37.0-47.0); Lymphocytes # 1.5 K/mm3 (0.7-4.5); Lymphocytes % 28.3 % (10-50); Mean Corpuscular HGB Conc 33.8 g/dL (31.8-35.4); Mean Corpuscular Hemoglobin 31.7 pg (27.0-31.2); Mean Corpuscular Volume 93.6 fl (81-99); Mean Platelet Volume 8.1 fl (7.4-10.4); Monocytes # 0.8 K/mm3 (0.1-1.0); Monocytes % 14.9 % (1.7-9.3); Neutrophils # 2.8 K/mm3 (1.8-7.8); Neutrophils % 55.1 % (37.0-80.0); Platelet Count 107 K/mm3 (142-424); Red Blood Count 4.12 M/mm3 (4.20-5.40); Red Cell Distribution Width 16.4 % (11.5-17.5); White Blood Count 5.2 K/mm3 (4.8-10.8)
[2020-12-27 09:25] LABS: Chloride 108 mmol/L (98-107); Potassium 3.9 mmoL/L (3.5-5.1); Sodium 137 mmol/L (136-145)
[2020-12-27 09:28] LABS: Alanine Aminotransferase 27 U/L (12-78); Albumin Level 3.3 g/dl (3.5-5.0); Albumin/Globulin Ratio 1.2 (1.1-1.8); Alkaline Phosphatase 191 U/L (38-126); Anion Gap 6.9 mEq/L (5-15); Aspartate Amino Transferase 41 U/L (14-36); Bilirubin,Total 0.5 mg/dl (0.2-1.3); Blood Urea Nitrogen 8 mg/dl (7-17); Carbon Dioxide 26 mmol/L (22.0-30.0); Creatinine Clearance Estimated 31 mL/min (50-200); Estimated Glomerular Filt Rate 125 ml/min (>60); GFR (African American) 151 ML/MIN (>60); Globulin 2.8 g/dL (1.3-3.2); Total Protein,Serum 6.1 g/dl (6.3-8.2)
[2020-12-27 09:29] LABS: Calcium 8.5 mg/dl (8.4-10.2); Glucose 105 mg/dl (74-100)
== END 2020-12-27 15:00 | disposition home or self-care (01) ==
LOC: INF 09:01
PROVIDERS: Visit Provider Internal Medicine Medical Oncology
DX: Z51.11 Encounter for antineoplastic chemotherapy (principal); C18.9 Malignant neoplasm of colon, unspecified
CPT/HCPCS: 80053; 85025; 96411; 96413; 96415; 96417; J0640; J8501; J9190; J9263; Q0166

== ENCOUNTER 2021-01-10 08:58 | Outpatient (CLI) | payer OTHER, SELFPAY ==
[2021-01-10] VITALS (16 sets, daily range): BP systolic 78–99; BP diastolic 39–48; PULSE 70–94; RESP 16–18; TEMP 36; O2SAT 95; BMI 14.8
[2021-01-10 09:28] LABS: Basophils # 0.1 K/mm3 (0-0.2); Eosinophils # 0.1 K/mm3 (0.0-0.4); Hemoglobin 13.1 g/dL (12.2-16.2); Lymphocytes # 1.4 K/mm3 (0.7-4.5); Lymphocytes % 26.7 % (10-50); Mean Corpuscular HGB Conc 32.7 g/dL (31.8-35.4); Mean Corpuscular Hemoglobin 31.2 pg (27.0-31.2); Mean Corpuscular Volume 95.4 fl (81-99); Mean Platelet Volume 10.8 fl (7.4-10.4); Monocytes % 17.6 % (1.7-9.3); Neutrophils # 2.9 K/mm3 (1.8-7.8); Neutrophils % 53.7 % (37.0-80.0); Platelet Count 99 K/mm3 (142-424); Red Cell Distribution Width 16.5 % (11.5-17.5); White Blood Count 5.4 K/mm3 (4.8-10.8)
[2021-01-10 09:29] LABS: Chloride 103 mmol/L (98-107); Potassium 4.7 mmoL/L (3.5-5.1); Sodium 137 mmol/L (136-145)
[2021-01-10 09:32] LABS: Alanine Aminotransferase 23 U/L (12-78); Albumin Level 3.4 g/dl (3.5-5.0); Albumin/Globulin Ratio 1.3 (1.1-1.8); Alkaline Phosphatase 178 U/L (38-126); Anion Gap 11.7 mEq/L (5-15); Aspartate Amino Transferase 33 U/L (14-36); Bilirubin,Total 0.6 mg/dl (0.2-1.3); Blood Urea Nitrogen 11 mg/dl (7-17); Carbon Dioxide 27 mmol/L (22.0-30.0); Creatinine Clearance Estimated 31 mL/min (50-200); Estimated Glomerular Filt Rate 101 ml/min (>60); GFR (African American) 122 ML/MIN (>60); Globulin 2.6 g/dL (1.3-3.2)
[2021-01-10 09:33] LABS: Glucose 106 mg/dl (74-100)
--- NOTE | 2021-01-10 12:19 | PC.NURSE ---
1045 - PREMEDICATED WITH DECADRON 10MG IVP, KYTRIL 2MG PO, AND EMEND 125MG PO FROM [facility]. REMAINING [facility] GIVEN TO PT AND INSTRUCTED TO TAKE 80MG PO ON DAYS 2 AND 3.
--- NOTE | 2021-01-10 16:21 | PC.NURSE ---
[id number] 2250MG BROUGHT IN BY [facility] FOR CONTINUOUS HOME INFUSION. MED AND DOSE VERIFIED BY LUIS NICKERSON,KAYLIE AND LAYNE VILLALOBOS RN. HOOKED UP TO PORT A CATH AND INFUSION STARTED PRIOR TO DISCHARGE.
== END 2021-01-10 14:45 | disposition home or self-care (01) ==
LOC: INF 08:58
PROVIDERS: Visit Provider Internal Medicine Medical Oncology
DX: Z51.11 Encounter for antineoplastic chemotherapy (principal); C18.9 Malignant neoplasm of colon, unspecified
CPT/HCPCS: 80053; 85025; 96411; 96413; 96415; 96417; J0640; J9190; J9263; Q0166

== ENCOUNTER 2021-01-24 08:41 | Outpatient (CLI) | payer OTHER, SELFPAY ==
[2021-01-24 08:43] VITALS: BMI 11.9
[2021-01-24 09:07] LABS: Hemoglobin 12.6 g/dL (12.2-16.2); Lymphocytes # 1.1 K/mm3 (0.7-4.5); Lymphocytes % 40.9 % (10-50); Mean Corpuscular HGB Conc 33.3 g/dL (31.8-35.4); Mean Corpuscular Hemoglobin 31.5 pg (27.0-31.2); Mean Corpuscular Volume 94.7 fl (81-99); Mean Platelet Volume 8.1 fl (7.4-10.4); Monocytes # 0.6 K/mm3 (0.1-1.0); Monocytes % 22.3 % (1.7-9.3); Neutrophils % 34.8 % (37.0-80.0); Platelet Count 90 K/mm3 (142-424); Red Blood Count 4.01 M/mm3 (4.20-5.40); Red Cell Distribution Width 16.5 % (11.5-17.5); White Blood Count 2.8 K/mm3 (4.8-10.8)
[2021-01-24 09:10] LABS: Chloride 106 mmol/L (98-107); Potassium 3.4 mmoL/L (3.5-5.1); Sodium 134 mmol/L (136-145)
[2021-01-24 09:13] LABS: Alanine Aminotransferase 26 U/L (12-78); Albumin Level 3.3 g/dl (3.5-5.0); Alkaline Phosphatase 201 U/L (38-126); Anion Gap 9.4 mEq/L (5-15); Aspartate Amino Transferase 48 U/L (14-36); Bilirubin,Total 0.7 mg/dl (0.2-1.3); Blood Urea Nitrogen 6 mg/dl (7-17); Calcium 8.8 mg/dl (8.4-10.2); Carbon Dioxide 22 mmol/L (22.0-30.0); Creatinine Clearance Estimated 31 mL/min (50-200); Estimated Glomerular Filt Rate 161 ml/min (>60); GFR (African American) 195 ML/MIN (>60); Glucose 128 mg/dl (74-100); MANUAL DIFFERENTIAL MANUAL DIFFERENTIAL (MANUAL DIFF)
[2021-01-24 09:14] LABS: Albumin/Globulin Ratio 1.3 (1.1-1.8); Globulin 2.5 g/dL (1.3-3.2); Total Protein,Serum 5.8 g/dl (6.3-8.2)
[2021-01-24 10:07] LABS: Eosinophils % 4 % (0-3); Lymphocytes % 40 % (10-50); Monocytes % 24 % (2-9); Neutrophils % 32 % (42-76); Total Cells Counted 25
[2021-01-24 10:55] VITALS: BP 117/68; PULSE 88; RESP 17; O2SAT 97
[2021-01-24 11:01] LABS: Platelet Estimate Moderate Decrease; RBC Morphology Normal
== END 2021-01-24 11:00 | disposition home or self-care (01) ==
LOC: INF 08:41
PROVIDERS: Visit Provider Internal Medicine Medical Oncology
DX: C18.9 Malignant neoplasm of colon, unspecified (principal); E86.0 Dehydration
CPT/HCPCS: 80053; 85007; 85025; 96360; 96375; J1642; J2405

== ENCOUNTER → 2021-01-31 08:21 | Outpatient (CLI) | payer OTHER, SELFPAY ==
[2021-01-31] VITALS (15 sets, daily range): BP systolic 81–123; BP diastolic 33–56; PULSE 68–81; RESP 18–20; TEMP 35.8; O2SAT 94; BMI 14.6
[2021-01-31 08:47] LABS: Basophils # 0.1 K/mm3 (0-0.2); Basophils % 1.1 % (0.1-2.0); Eosinophils # 0.1 K/mm3 (0.0-0.4); Eosinophils % 0.8 % (0.1-12.0); Hematocrit 39.6 % (37.0-47.0); Hemoglobin 12.9 g/dL (12.2-16.2); Lymphocytes # 1.7 K/mm3 (0.7-4.5); Mean Corpuscular HGB Conc 32.6 g/dL (31.8-35.4); Mean Corpuscular Hemoglobin 31.5 pg (27.0-31.2); Mean Corpuscular Volume 96.6 fl (81-99); Mean Platelet Volume 7.6 fl (7.4-10.4); Monocytes # 1.2 K/mm3 (0.1-1.0); Monocytes % 18.4 % (1.7-9.3); Neutrophils # 3.6 K/mm3 (1.8-7.8); Neutrophils % 54.7 % (37.0-80.0); Platelet Count 158 K/mm3 (142-424); Red Blood Count 4.09 M/mm3 (4.20-5.40); Red Cell Distribution Width 16.2 % (11.5-17.5); White Blood Count 6.6 K/mm3 (4.8-10.8)
[2021-01-31 08:48] LABS: Chloride 104 mmol/L (98-107); Potassium 3.8 mmoL/L (3.5-5.1); Sodium 134 mmol/L (136-145)
[2021-01-31 08:51] LABS: Alanine Aminotransferase 24 U/L (12-78); Albumin Level 3.1 g/dl (3.5-5.0); Albumin/Globulin Ratio 1.2 (1.1-1.8); Alkaline Phosphatase 265 U/L (38-126); Anion Gap 7.8 mEq/L (5-15); Aspartate Amino Transferase 39 U/L (14-36); Bilirubin,Total 0.6 mg/dl (0.2-1.3); Blood Urea Nitrogen 6 mg/dl (7-17); Calcium 8.6 mg/dl (8.4-10.2); Carbon Dioxide 26 mmol/L (22.0-30.0); Creatinine Clearance Estimated 31 mL/min (50-200); Estimated Glomerular Filt Rate 161 ml/min (>60); GFR (African American) 195 ML/MIN (>60); Globulin 2.6 g/dL (1.3-3.2); Glucose 114 mg/dl (74-100); Total Protein,Serum 5.7 g/dl (6.3-8.2)
[2021-01-31 13:17] LABS: Iron 78 ug/dL (37-170)
[2021-01-31 13:18] LABS: Magnesium 1.6 mg/dl (1.6-2.3)
[2021-01-31 13:27] LABS: Total Iron Binding Capacity 320 ug/dL (265-497)
== END ==
PROVIDERS: Visit Provider Internal Medicine Medical Oncology
DX: Z51.11 Encounter for antineoplastic chemotherapy (principal); C18.9 Malignant neoplasm of colon, unspecified
CPT/HCPCS: 80053; 82728; 83540; 83550; 83735; 85025; 96413; 96415; 96417; J0640; J9190; J9263; Q0166

== ENCOUNTER 2021-02-14 08:43 | Outpatient (CLI) | payer OTHER, SELFPAY ==
[2021-02-14] VITALS (14 sets, daily range): BP systolic 93–116; BP diastolic 37–87; PULSE 53–87; RESP 18; TEMP 36.4; O2SAT 97; BMI 14.6
[2021-02-14 08:59] LABS: Hematocrit 36.4 % (37.0-47.0); Hemoglobin 12.2 g/dL (12.2-16.2); Lymphocytes # 1.4 K/mm3 (0.7-4.5); Lymphocytes % 30.7 % (10-50); Mean Corpuscular HGB Conc 33.6 g/dL (31.8-35.4); Mean Corpuscular Hemoglobin 31.6 pg (27.0-31.2); Mean Corpuscular Volume 94.1 fl (81-99); Mean Platelet Volume 8.8 fl (7.4-10.4); Monocytes # 0.6 K/mm3 (0.1-1.0); Monocytes % 14.3 % (1.7-9.3); Neutrophils # 2.4 K/mm3 (1.8-7.8); Neutrophils % 53.1 % (37.0-80.0); Platelet Count 125 K/mm3 (142-424); Red Blood Count 3.87 M/mm3 (4.20-5.40); Red Cell Distribution Width 16.2 % (11.5-17.5); White Blood Count 4.5 K/mm3 (4.8-10.8)
[2021-02-14 09:11] LABS: Alanine Aminotransferase 25 U/L (12-78); Albumin Level 3.4 g/dl (3.5-5.0); Albumin/Globulin Ratio 1.4 (1.1-1.8); Alkaline Phosphatase 218 U/L (38-126); Anion Gap 5.8 mEq/L (5-15); Aspartate Amino Transferase 43 U/L (14-36); Bilirubin,Total 0.7 mg/dl (0.2-1.3); Blood Urea Nitrogen 7 mg/dl (7-17); Calcium 8.6 mg/dl (8.4-10.2); Carbon Dioxide 24 mmol/L (22.0-30.0); Chloride 108 mmol/L (98-107); Creatinine Clearance Estimated 31 mL/min (50-200); Estimated Glomerular Filt Rate 161 ml/min (>60); GFR (African American) 195 ML/MIN (>60); Globulin 2.5 g/dL (1.3-3.2); Glucose 107 mg/dl (74-100); Potassium 3.8 mmoL/L (3.5-5.1); Sodium 134 mmol/L (136-145); Total Protein,Serum 5.9 g/dl (6.3-8.2)
== END 2021-02-14 14:05 | disposition home or self-care (01) ==
LOC: INF 08:43
PROVIDERS: Visit Provider Internal Medicine Medical Oncology
DX: Z51.11 Encounter for antineoplastic chemotherapy (principal); C18.9 Malignant neoplasm of colon, unspecified
CPT/HCPCS: 80053; 85025; 96413; 96415; 96417; J0640; J9190; J9263; Q0166

== ENCOUNTER 2021-02-28 08:10 | Outpatient (CLI) | payer OTHER, SELFPAY ==
[2021-02-28] VITALS (20 sets, daily range): BP systolic 82–108; BP diastolic 31–56; PULSE 68–89; RESP 18–19; BMI 14.7
[2021-02-28 08:26] LABS: Basophils # 0.1 K/mm3 (0-0.2); Basophils % 1.2 % (0.1-2.0); Eosinophils % 0.5 % (0.1-12.0); Hematocrit 37.4 % (37.0-47.0); Hemoglobin 12.3 g/dL (12.2-16.2); Lymphocytes # 1.5 K/mm3 (0.7-4.5); Lymphocytes % 31.7 % (10-50); Mean Corpuscular HGB Conc 32.9 g/dL (31.8-35.4); Mean Platelet Volume 8.9 fl (7.4-10.4); Monocytes % 21.2 % (1.7-9.3); Neutrophils # 2.1 K/mm3 (1.8-7.8); Neutrophils % 45.4 % (37.0-80.0); Platelet Count 110 K/mm3 (142-424); Red Blood Count 3.98 M/mm3 (4.20-5.40); Red Cell Distribution Width 16.1 % (11.5-17.5); White Blood Count 4.7 K/mm3 (4.8-10.8)
[2021-02-28 08:34] LABS: MANUAL DIFFERENTIAL MANUAL DIFFERENTIAL (MANUAL DIFF)
[2021-02-28 08:35] LABS: Chloride 107 mmol/L (98-107); Potassium 3.5 mmoL/L (3.5-5.1); Sodium 135 mmol/L (136-145)
[2021-02-28 08:38] LABS: Alanine Aminotransferase 25 U/L (12-78); Albumin Level 3.3 g/dl (3.5-5.0); Albumin/Globulin Ratio 1.3 (1.1-1.8); Alkaline Phosphatase 238 U/L (38-126); Anion Gap 7.5 mEq/L (5-15); Aspartate Amino Transferase 38 U/L (14-36); Bilirubin,Total 0.8 mg/dl (0.2-1.3); Blood Urea Nitrogen 9 mg/dl (7-17); Calcium 8.2 mg/dl (8.4-10.2); Carbon Dioxide 24 mmol/L (22.0-30.0); Creatinine Clearance Estimated 31 mL/min (50-200); Estimated Glomerular Filt Rate 161 ml/min (>60); GFR (African American) 195 ML/MIN (>60); Globulin 2.5 g/dL (1.3-3.2); Glucose 100 mg/dl (74-100); Total Protein,Serum 5.8 g/dl (6.3-8.2)
[2021-02-28 09:06] LABS: Lymphocytes % 40 % (10-50); Monocytes % 1 % (2-9); Neutrophils % 59 % (42-76); Total Cells Counted 100
[2021-02-28 09:07] LABS: Hypochromasia 1+; Microcytosis 1+; Platelet Estimate Normal
== END 2021-02-28 14:40 | disposition home or self-care (01) ==
LOC: INF 08:10
PROVIDERS: Visit Provider Internal Medicine Medical Oncology
DX: Z51.11 Encounter for antineoplastic chemotherapy (principal); C18.9 Malignant neoplasm of colon, unspecified
CPT/HCPCS: 80053; 85007; 85025; 96411; 96413; 96415; 96417; J0640; J9190; J9263; Q0166

== ENCOUNTER 2021-04-10 10:12 | Outpatient (CLI) | payer OTHER, SELFPAY ==
[2021-04-10 10:01] VITALS: BMI 14.6
--- NOTE | 2021-04-10 10:16 | CT_ITS ---
PROCEDURE INFORMATION: Exam: CT Abdomen And Pelvis With Contrast Exam date and time: 04/10/2021 10:16 AM Age: 66 years old Clinical indication: Condition or disease; Cancer; Intestine, large; Prior surgery; Surgery date: 6+ months; Surgery type: Colon; Additional info: Malignant neoplasm of colon, unspecified TECHNIQUE: Imaging protocol: Computed tomography of the abdomen and pelvis with contrast. Radiation optimization: All CT scans at this facility use at least one of these dose optimization techniques: automated exposure control; mA and/or kV adjustment per patient size (includes targeted exams where dose is matched to clinical indication); or iterative reconstruction. Contrast material: ISOVUE; Contrast volume: 75 ml; Contrast route: IV; COMPARISON: CT ABDOMEN PELVIS WO/W CON 12/12/2020 10:37 AM FINDINGS: Lungs: Granulomatous calcification noted within the left lung base. Atelectatic changes noted within both lung bases. Heart: Trace pericardial effusion. Liver: Normal. No mass. Gallbladder and bile ducts: Diffuse pneumobilia is present with biliary stent in place. Mild intrahepatic ductal dilatation present. Pancreas: Mild prominence of the head of the pancreas with ductal dilatation present, similar to the prior study. Spleen: Normal. No splenomegaly. Adrenal glands: Normal. No mass. Kidneys and ureters: Nonspecific low-density foci of the kidneys statistically favor benign cysts, no further follow-up needed, as large as 7 mm on the right. Stomach and bowel: Status post right hemicolectomy. Multiple fluid-filled and dilated bowel loops present within the left pelvis, similar to the prior study. Intraperitoneal space: Normal. No significant fluid collection. Vasculature: The vasculature demonstrates diffuse mild atherosclerotic calcification. Lymph nodes: There are multiple nonspecific nonpathologic but prominent lymph nodes in the mesentery. There are no mesenteric lymph nodes of pathologic dimensions. Urinary bladder: Unremarkable as visualized. Reproductive: Unremarkable as visualized. Bones/joints: No osteoblastic or osteolytic lesions. Soft tissues: Soft tissue density again noted along the distal aspect of the stent, similar to the prior study. IMPRESSION: 1. Diffuse pneumobilia is present with biliary stent in place. 2. Mild intrahepatic ductal dilatation present. 3. Soft tissue density again noted along the distal aspect of the stent, similar to the prior study. 4. Status post right hemicolectomy. 5. Multiple fluid-filled and dilated bowel loops present within the left pelvis, similar to the prior study. 6. No osteoblastic or osteolytic lesions. COMMENTS: Consistent with the [employer]'s Incidental Findings Committee white paper (J Am Hal Radiol 2018): Any incidental renal lesion less than 1 cm or classified as too small to characterize, or any incidental cystic renal lesion characterized as simple-appearing, is likely benign. No follow-up imaging is recommended for these lesions per consensus recommendations based on imaging criteria.
[2021-04-10 10:19] LABS: Basophils # 0.1 K/mm3 (0-0.2); Basophils % 0.9 % (0.1-2.0); Eosinophils # 0.1 K/mm3 (0.0-0.4); Eosinophils % 2.4 % (0.1-12.0); Hematocrit 39.3 % (37.0-47.0); Hemoglobin 12.8 g/dL (12.2-16.2); Lymphocytes # 1.4 K/mm3 (0.7-4.5); Lymphocytes % 27.1 % (10-50); Mean Corpuscular HGB Conc 32.5 g/dL (31.8-35.4); Mean Corpuscular Hemoglobin 30.9 pg (27.0-31.2); Mean Platelet Volume 8.4 fl (7.4-10.4); Monocytes # 0.7 K/mm3 (0.1-1.0); Monocytes % 13.4 % (1.7-9.3); Neutrophils % 56.2 % (37.0-80.0); Platelet Count 159 K/mm3 (142-424); Red Blood Count 4.14 M/mm3 (4.20-5.40); Red Cell Distribution Width 14.6 % (11.5-17.5); White Blood Count 5.3 K/mm3 (4.8-10.8)
--- NOTE | 2021-04-10 10:21 | CT_ITS ---
PROCEDURE: CT CHEST W CON CLINCAL INDICATION: MALIGNANT NEOPLASM OF COLON, UNSPECIFIED COMPARISON: CT CT CHEST WO/W CON from 12/12/[address] ABDOMEN PELVIS WO/W CON from 12/12/2020 TECHNIQUE: IV Contrast: 75ml Isovue 370 Axial images obtained with sagittal and coronal reformats. All CT scans at the facility use one or more dose reduction, viz: automated exposure control, ma/kV adjustment per patient size (including targeted exams where dose is matched to indication, i.e. head), or iterative reconstruction technique. FINDINGS: HEART AND MEDIASTINAL STRUCTURES: Overall cardiac size is grossly normal. There is no pulmonary. LUNGS AND PLEURAL SPACES: Rather severe emphysematous changes are seen with hyperexpansion lung loo and flattening and depression of the hemidiaphragms. Prominent centrilobular emphysematous changes are seen in both lung loo primarily upper lobes. Pleural based ill-defined opacities in both upper lobes posteriorly seen previously likely representing pleural and parenchymal postinflammatory scarring. There is no enhancing parenchymal mass to suggest metastatic disease. There is no pleural fluid. BONY STRUCTURES: There is mild serpentine scoliotic curvature of the upper thoracic spine. All thoracic vertebrae appear intact. There are no lytic or blastic lesions to suggest metastatic disease. UPPER ABDOMEN: Again noted is diffuse pneumobilia probably related to the biliary stent surgical procedure. ADDITIONAL FINDINGS: No other significant abnormalities. IMPRESSION: Rather severe underlying emphysema basically stable pleural-based areas of pleural parenchymal scarring in the upper lobes, no convincing evidence of metastatic disease. Dictated by: Dr. Bernard Calhoun MD 04/10/2021 13:21 Dr. Bernard Calhoun MD in [place] 04/10/2021 13:21
[2021-04-10 10:29] LABS: Alanine Aminotransferase 26 U/L (12-78); Albumin Level 3.2 g/dl (3.5-5.0); Albumin/Globulin Ratio 1.1 (1.1-1.8); Alkaline Phosphatase 246 U/L (38-126); Anion Gap 11.8 mEq/L (5-15); Aspartate Amino Transferase 38 U/L (14-36); Bilirubin,Total 0.6 mg/dl (0.2-1.3); Blood Urea Nitrogen 6 mg/dl (7-17); Calcium 8.6 mg/dl (8.4-10.2); Carbon Dioxide 24 mmol/L (22.0-30.0); Chloride 102 mmol/L (98-107); Creatinine Clearance Estimated 31 mL/min (50-200); Estimated Glomerular Filt Rate 124 ml/min (>60); GFR (African American) 150 ML/MIN (>60); Globulin 2.8 g/dL (1.3-3.2); Glucose 128 mg/dl (74-100); Potassium 3.8 mmoL/L (3.5-5.1); Sodium 134 mmol/L (136-145)
== END 2021-04-10 11:45 | disposition home or self-care (01) ==
LOC: RAD 10:13
PROVIDERS: Internal Medicine Medical Oncology; PCP Family Medicine; Visit Provider Surgery
DX: C18.9 Malignant neoplasm of colon, unspecified (principal)
CPT/HCPCS: 71260; 74177; 80053; 85025; J1642; Q9967

== ENCOUNTER → 2021-04-24 13:07 | Outpatient (CLI) | payer OTHER, SELFPAY ==
[2021-04-24 15:04] LABS: Chloride 105 mmol/L (98-107); Potassium 4.3 mmoL/L (3.5-5.1); Sodium 138 mmol/L (136-145)
[2021-04-24 15:07] LABS: Blood Urea Nitrogen 10 mg/dl (7-17); Estimated Glomerular Filt Rate 101 ml/min (>60); GFR (African American) 122 ML/MIN (>60)
[2021-04-24 15:08] LABS: Anion Gap 12.3 mEq/L (5-15); Calcium 8.9 mg/dl (8.4-10.2); Carbon Dioxide 25 mmol/L (22.0-30.0); Glucose 120 mg/dl (74-100)
== END ==
PROVIDERS: Visit Provider Family Medicine
DX: Z01.818 Encounter for other preprocedural examination (principal); Z11.52 Encounter for screening for COVID-19
CPT/HCPCS: 36415; 80048; U0003

== ENCOUNTER 2021-05-08 09:57 | Outpatient (CLI) | payer OTHER, SELFPAY | END 2021-05-08 10:14 | disposition home or self-care (01) | LOC: INF 09:57 | PROVIDERS: Visit Provider Internal Medicine Medical Oncology | DX: Z45.2 Encounter for adjustment and management of vascular access device (principal) | CPT/HCPCS: 96523; J1642 ==

== ENCOUNTER 2021-06-05 09:40 | Outpatient (CLI) | payer OTHER, SELFPAY | END 2021-06-05 10:10 | disposition home or self-care (01) | LOC: INF 09:42 | PROVIDERS: PCP Family Medicine; Visit Provider Internal Medicine Medical Oncology | DX: Z45.2 Encounter for adjustment and management of vascular access device (principal) | CPT/HCPCS: 96523; J1642 ==

== ENCOUNTER 2021-07-11 08:42 | Outpatient (CLI) | payer OTHER, SELFPAY ==
[2021-07-11 08:47] VITALS: BMI 14.6
[2021-07-11 09:12] LABS: Basophils % 0.7 % (0.1-2.0); Eosinophils # 0.1 K/mm3 (0.0-0.4); Eosinophils % 1.8 % (0.1-12.0); Hematocrit 44.7 % (37.0-47.0); Hemoglobin 14.1 g/dL (12.2-16.2); Lymphocytes # 1.1 K/mm3 (0.7-4.5); Lymphocytes % 19.9 % (10-50); Mean Corpuscular HGB Conc 31.7 g/dL (31.8-35.4); Mean Corpuscular Hemoglobin 29.6 pg (27.0-31.2); Mean Corpuscular Volume 93.4 fl (81-99); Mean Platelet Volume 7.4 fl (7.4-10.4); Monocytes # 0.6 K/mm3 (0.1-1.0); Monocytes % 10.2 % (1.7-9.3); Neutrophils # 3.8 K/mm3 (1.8-7.8); Neutrophils % 67.3 % (37.0-80.0); Platelet Count 189 K/mm3 (142-424); Red Blood Count 4.78 M/mm3 (4.20-5.40); Red Cell Distribution Width 13.4 % (11.5-17.5); White Blood Count 5.7 K/mm3 (4.8-10.8)
[2021-07-11 09:16] LABS: Chloride 105 mmol/L (98-107); Potassium 4.1 mmoL/L (3.5-5.1); Sodium 138 mmol/L (136-145)
[2021-07-11 09:19] LABS: Alanine Aminotransferase 32 U/L (12-78); Albumin Level 3.8 g/dl (3.5-5.0); Albumin/Globulin Ratio 1.3 (1.1-1.8); Alkaline Phosphatase 275 U/L (38-126); Anion Gap 12.1 mEq/L (5-15); Aspartate Amino Transferase 59 U/L (14-36); Bilirubin,Total 0.5 mg/dl (0.2-1.3); Blood Urea Nitrogen 9 mg/dl (7-17); Carbon Dioxide 25 mmol/L (22.0-30.0); Creatinine Clearance Estimated 31 mL/min (50-200); Estimated Glomerular Filt Rate 124 ml/min (>60); GFR (African American) 150 ML/MIN (>60); Globulin 2.9 g/dL (1.3-3.2); Glucose 101 mg/dl (74-100); Total Protein,Serum 6.7 g/dl (6.3-8.2)
[2021-07-12 09:16] LABS: CEA 2.6 ng/mL (0.0-4.7)
== END 2021-07-11 08:58 | disposition home or self-care (01) ==
LOC: INF 08:43
PROVIDERS: PCP Family Medicine; Visit Provider Internal Medicine Medical Oncology
DX: C18.9 Malignant neoplasm of colon, unspecified (principal); Z45.2 Encounter for adjustment and management of vascular access device
CPT/HCPCS: 80053; 82378; 85025; J1642

== ENCOUNTER 2021-08-08 09:26 | Outpatient (CLI) | payer OTHER, SELFPAY | END 2021-08-08 09:40 | disposition home or self-care (01) | LOC: INF 09:26 | PROVIDERS: PCP Family Medicine; Visit Provider Internal Medicine Medical Oncology | DX: C18.9 Malignant neoplasm of colon, unspecified (principal); Z45.2 Encounter for adjustment and management of vascular access device | CPT/HCPCS: 96523; J1642 ==

== ENCOUNTER 2021-09-04 08:51 | Outpatient (CLI) | payer OTHER, SELFPAY | END 2021-09-04 09:00 | disposition home or self-care (01) | LOC: INF 08:51 | PROVIDERS: PCP Family Medicine; Visit Provider Internal Medicine Medical Oncology | DX: Z45.2 Encounter for adjustment and management of vascular access device (principal); C18.9 Malignant neoplasm of colon, unspecified | CPT/HCPCS: 96523; J1642 ==

== ENCOUNTER 2021-11-15 13:40 | Outpatient (CLI) | payer OTHER, SELFPAY ==
[2021-11-15 14:25] VITALS: BP 98/55; PULSE 68; RESP 20
== END 2021-11-15 14:45 | disposition home health service (06) ==
LOC: INF 13:41
PROVIDERS: PCP Family Medicine; Visit Provider Internal Medicine Medical Oncology
DX: C18.9 Malignant neoplasm of colon, unspecified (principal); Z45.2 Encounter for adjustment and management of vascular access device
CPT/HCPCS: 96523; J1642

== ENCOUNTER 2021-12-06 10:03 | Outpatient (CLI) | payer OTHER, SELFPAY ==
[2021-12-06 10:05] VITALS: BMI 16.0
[2021-12-06 10:28] LABS: Basophils # 0.1 K/mm3 (0-0.2); Basophils % 0.9 % (0.1-2.0); Eosinophils # 0.2 K/mm3 (0.0-0.4); Eosinophils % 2.4 % (0.1-12.0); Hematocrit 41.5 % (37.0-47.0); Hemoglobin 13.8 g/dL (12.2-16.2); Lymphocytes # 1.5 K/mm3 (0.7-4.5); Lymphocytes % 24.1 % (10-50); Mean Corpuscular HGB Conc 33.3 g/dL (31.8-35.4); Mean Corpuscular Hemoglobin 30.3 pg (27.0-31.2); Mean Platelet Volume 7.8 fl (7.4-10.4); Monocytes # 0.7 K/mm3 (0.1-1.0); Monocytes % 10.1 % (1.7-9.3); Neutrophils % 62.5 % (37.0-80.0); Platelet Count 247 K/mm3 (142-424); Red Blood Count 4.56 M/mm3 (4.20-5.40); Red Cell Distribution Width 13.2 % (11.5-17.5); White Blood Count 6.4 K/mm3 (4.8-10.8)
[2021-12-06 10:48] LABS: Alanine Aminotransferase 31 U/L (12-78); Albumin/Globulin Ratio 1.6 (1.1-1.8); Alkaline Phosphatase 207 U/L (38-126); Aspartate Amino Transferase 39 U/L (14-36); Bilirubin,Total 0.7 mg/dl (0.2-1.3); Blood Urea Nitrogen 9 mg/dl (7-17); Calcium 8.8 mg/dl (8.4-10.2); Carbon Dioxide 24 mmol/L (22.0-30.0); Chloride 105 mmol/L (98-107); Creatinine Clearance Estimated 33 mL/min (50-200); Estimated Glomerular Filt Rate 124 ml/min (>60); GFR (African American) 150 ML/MIN (>60); Globulin 2.5 g/dL (1.3-3.2); Glucose 137 mg/dl (74-100); Sodium 138 mmol/L (136-145); Total Protein,Serum 6.5 g/dl (6.3-8.2)
== END 2021-12-06 10:15 | disposition home or self-care (01) ==
LOC: INF 10:04
PROVIDERS: PCP Family Medicine; Visit Provider Internal Medicine Medical Oncology
DX: Z45.2 Encounter for adjustment and management of vascular access device (principal); C18.9 Malignant neoplasm of colon, unspecified
CPT/HCPCS: 80053; 85025; J1642

== ENCOUNTER → 2021-12-25 13:45 | Outpatient (CLI) | payer OTHER, SELFPAY | PROVIDERS: PCP Family Medicine; Visit Provider Internal Medicine Pulmonary Disease | DX: R06.00 Dyspnea, unspecified (principal) | CPT/HCPCS: 94762 ==

== ENCOUNTER 2021-12-30 08:43 | Outpatient (CLI) | payer OTHER, SELFPAY | END 2021-12-30 09:00 | disposition home or self-care (01) | LOC: INF 08:43 | PROVIDERS: PCP Family Medicine; Visit Provider Internal Medicine Medical Oncology | DX: C18.9 Malignant neoplasm of colon, unspecified (principal); Z45.2 Encounter for adjustment and management of vascular access device | CPT/HCPCS: 96523; J1642 ==

== ENCOUNTER 2022-01-23 09:39 | Outpatient (CLI) | payer OTHER, SELFPAY ==
--- NOTE | 2022-01-23 10:34 | PC.NURSE ---
PATIENT UNABLE TO PERFORM PFT WITHOUT COUGHING THROUGHOUT TEST. STATED SHE HAS NEUROPATHY IN HANDS AND FEET AND FELT LIKE SHE COULD NOT WALK FOR THE WALK TEST. RONA CONTACTED IN PULMONOLOGY AND TOLD ABOUT TESTING NOT BEING ABLE TO BE DONE
[2022-01-24 12:13] LABS: Alpha-1-Antitrypsin 186 mg/dL (101-187)
[2022-01-25 18:24] LABS: QuantiFERON-TB Gold Plus Negative (Negative)
== END 2022-01-23 11:00 | disposition home or self-care (01) ==
LOC: RT 10:30 → INF 10:42
PROVIDERS: PCP Family Medicine; Visit Provider Internal Medicine Pulmonary Disease
DX: J44.9 Chronic obstructive pulmonary disease, unspecified (principal)
CPT/HCPCS: 82103; 86480; J1642

== ENCOUNTER 2022-02-25 09:53 | Outpatient (CLI) | payer MEDICARE, SELFPAY | END 2022-02-25 10:10 | disposition home or self-care (01) | LOC: INF 09:58 | PROVIDERS: PCP Family Medicine; Visit Provider Internal Medicine Medical Oncology | DX: Z45.2 Encounter for adjustment and management of vascular access device (principal); C18.9 Malignant neoplasm of colon, unspecified | CPT/HCPCS: 96523; J1642 ==

== ENCOUNTER 2022-03-28 09:43 | Outpatient (CLI) | payer MEDICARE, SELFPAY | END 2022-03-28 09:53 | disposition home or self-care (01) | LOC: INF 09:43 | PROVIDERS: PCP Family Medicine; Visit Provider Internal Medicine Medical Oncology | DX: Z45.2 Encounter for adjustment and management of vascular access device (principal); C18.9 Malignant neoplasm of colon, unspecified | CPT/HCPCS: 96523; J1642 ==

== ENCOUNTER → 2022-05-07 07:55 | Outpatient (CLI) | payer MEDICARE, SELFPAY ==
--- NOTE | 2022-05-07 07:58 | MM_ITS ---
PROCEDURE INFORMATION: Exam: MG Bilateral Screening 3D Mammography Exam date and time: 05/07/2022 8:20 AM Age: 67 years old Clinical indication: Screening examination. Patient has Neurofibromatosis. Her maternal cousin had breast cancer. TECHNIQUE: Imaging protocol: Bilateral Screening tomosynthesis and 2D mammography including computer-aided detection (CAD) when performed. COMPARISON: No relevant prior studies available.If prior mammograms are provided, I am happy to add an addendum. FINDINGS: MAMMOGRAPHY: Breast composition: The breasts are heterogeneously dense, which may obscure small masses. Mass: No suspicious mass. Multiple skin related masses with history of Neurofibromatosis. Architectural distortion: None. Calcifications: No suspicious calcifications. Asymmetric density: None. Skin thickening: None. Axillary adenopathy: None. Other: Left biopsy clip. IMPRESSION: No mammographic evidence of malignancy. Annual screening is recommended unless otherwise clinically indicated. ASSESSMENT: BI-RADS Category 2: Benign
--- NOTE | 2022-05-07 07:58 | XR_ITS ---
FINAL REPORT TECHNIQUE: Bone densitometry calculations of the lumbar spine and right hip were obtained. CLINICAL HISTORY: . post menopausal screening FINDINGS: DEXA BONE DENSITY AXIAL SKELETON Using L1-4, the bone mineral density of the spine is 0.444 g/cm2, corresponding to T-score of -5.5. Using the right hip, the bone mineral density of the femoral neck is 0.379 g/cm2, corresponding to a T-score of -4.6. NOTE: T-score: Standard deviation compared with peak bone mass of young adult mean. *Following the recommendations of the International Society of Bone Densitometry, classification of hip BMD is based on the lower of two T-scores; total hip or femoral neck. IMPRESSION: Osteoporosis: Lowest T-score is at or below -2.5. This patient's T-score meets the World Health Organization criteria for osteoporosis. Reviewed, Interpreted and Dictated by Jaxon Florentino III, MD Transcribed by Sera Valdez Authenticated and [facility]
== END ==
PROVIDERS: PCP Family Medicine; Visit Provider Family Medicine
DX: Z12.31 Encounter for screening mammogram for malignant neoplasm of breast (principal); M81.0 Age-related osteoporosis without current pathological fracture
CPT/HCPCS: 77063; 77067; 77080

== ENCOUNTER 2022-06-05 08:33 | Outpatient (CLI) | payer MEDICARE, SELFPAY ==
[2022-06-05 08:37] VITALS: BMI 16.5
[2022-06-05 09:00] LABS: Basophils # 0.2 K/mm3 (0-0.2); Basophils % 3.4 % (0.1-2.0); Eosinophils # 0.1 K/mm3 (0.0-0.4); Eosinophils % 1.6 % (0.1-12.0); Hematocrit 45.1 % (37.0-47.0); Hemoglobin 14.8 g/dL (12.2-16.2); Lymphocytes # 1.1 K/mm3 (0.7-4.5); Lymphocytes % 17.5 % (10-50); Mean Corpuscular HGB Conc 32.9 g/dL (31.8-35.4); Mean Corpuscular Volume 91.4 fl (81-99); Mean Platelet Volume 8.6 fl (7.4-10.4); Monocytes # 0.8 K/mm3 (0.1-1.0); Monocytes % 11.7 % (1.7-9.3); Neutrophils # 4.2 K/mm3 (1.8-7.8); Neutrophils % 65.9 % (37.0-80.0); Platelet Count 262 K/mm3 (142-424); Red Blood Count 4.94 M/mm3 (4.20-5.40); Red Cell Distribution Width 14.3 % (11.5-17.5); White Blood Count 6.4 K/mm3 (4.8-10.8)
[2022-06-05 09:15] LABS: Alanine Aminotransferase 24 U/L (12-78); Albumin Level 3.9 g/dl (3.5-5.0); Albumin/Globulin Ratio 1.4 (1.1-1.8); Alkaline Phosphatase 216 U/L (38-126); Aspartate Amino Transferase 34 U/L (14-36); Blood Urea Nitrogen 16 mg/dl (7-17); Calcium 8.5 mg/dl (8.4-10.2); Carbon Dioxide 26 mmol/L (22.0-30.0); Chloride 103 mmol/L (98-107); Creatinine Clearance Estimated 33 mL/min (50-200); Estimated Glomerular Filt Rate 124 ml/min (>60); GFR (African American) 150 ML/MIN (>60); Globulin 2.7 g/dL (1.3-3.2); Glucose 100 mg/dl (74-100); Sodium 138 mmol/L (136-145); Total Protein,Serum 6.6 g/dl (6.3-8.2)
[2022-06-05 09:17] LABS: Bilirubin,Total 0.1 mg/dl (0.2-1.3)
== END 2022-06-05 08:56 | disposition home or self-care (01) ==
LOC: INF 08:34
PROVIDERS: PCP Family Medicine; Visit Provider Internal Medicine Medical Oncology
DX: Z45.2 Encounter for adjustment and management of vascular access device (principal); C18.9 Malignant neoplasm of colon, unspecified
CPT/HCPCS: 36591; 80053; 85025; J1642

== ENCOUNTER 2022-08-25 12:34 | Outpatient (CLI) | payer OTHER, SELFPAY | END 2022-08-25 12:56 | disposition home or self-care (01) | LOC: INF 12:37 | PROVIDERS: PCP Family Medicine; Visit Provider Internal Medicine Medical Oncology | DX: Z45.2 Encounter for adjustment and management of vascular access device (principal) | CPT/HCPCS: 96523; J1642 ==

== ENCOUNTER 2022-10-06 10:17 | Outpatient (CLI) | payer OTHER, SELFPAY | END 2022-10-06 10:40 | disposition home or self-care (01) | LOC: INF 10:17 | PROVIDERS: PCP Psychiatry & Neurology Sleep Medicine; Visit Provider Internal Medicine Medical Oncology | DX: Z45.2 Encounter for adjustment and management of vascular access device (principal) | CPT/HCPCS: 96523; J1642 ==

== ENCOUNTER 2022-12-08 10:40 | Outpatient (CLI) | payer MEDICARE, SELFPAY | END 2022-12-08 10:50 | disposition home or self-care (01) | LOC: INF 10:42 | PROVIDERS: PCP Family Medicine; Visit Provider Internal Medicine Medical Oncology | DX: Z45.2 Encounter for adjustment and management of vascular access device (principal); C18.9 Malignant neoplasm of colon, unspecified | CPT/HCPCS: 96523; J1642 ==

== ENCOUNTER 2023-01-08 09:12 | Outpatient (CLI) | payer MEDICARE, MEDICAID, SELFPAY ==
[2023-01-08 09:18] VITALS: BMI 16.7
[2023-01-08 09:39] LABS: Basophils # 0.1 K/mm3 (0-0.2); Basophils % 0.7 % (0.1-2.0); Eosinophils # 0.2 K/mm3 (0.0-0.4); Hemoglobin 14.2 g/dL (12.2-16.2); Lymphocytes # 1.3 K/mm3 (0.7-4.5); Lymphocytes % 16.2 % (10-50); Mean Corpuscular Hemoglobin 29.1 pg (27.0-31.2); Mean Corpuscular Volume 88.2 fl (81-99); Mean Platelet Volume 8.5 fl (7.4-10.4); Monocytes # 0.9 K/mm3 (0.1-1.0); Monocytes % 10.7 % (1.7-9.3); Neutrophils # 5.7 K/mm3 (1.8-7.8); Neutrophils % 70.4 % (37.0-80.0); Platelet Count 248 K/mm3 (142-424); Red Blood Count 4.88 M/mm3 (4.20-5.40); Red Cell Distribution Width 14.1 % (11.5-17.5)
[2023-01-08 09:48] LABS: Chloride 103 mmol/L (98-107)
[2023-01-08 09:49] LABS: Potassium 4.1 mmoL/L (3.5-5.1); Sodium 134 mmol/L (136-145)
[2023-01-08 09:51] LABS: Blood Urea Nitrogen 13 mg/dl (7-17); Creatinine Clearance Estimated 33 mL/min (50-200); Estimated Glomerular Filt Rate 100 ml/min (>60); GFR (African American) 121 ML/MIN (>60)
[2023-01-08 09:52] LABS: Alanine Aminotransferase 19 U/L (12-78); Albumin Level 3.7 g/dl (3.5-5.0); Albumin/Globulin Ratio 1.4 (1.1-1.8); Alkaline Phosphatase 170 U/L (38-126); Anion Gap 9.1 mEq/L (5-15); Aspartate Amino Transferase 33 U/L (14-36); Bilirubin,Total 0.8 mg/dl (0.2-1.3); Calcium 8.3 mg/dl (8.4-10.2); Carbon Dioxide 26 mmol/L (22.0-30.0); Globulin 2.6 g/dL (1.3-3.2); Glucose 103 mg/dl (74-100); Total Protein,Serum 6.3 g/dl (6.3-8.2)
== END 2023-01-08 09:35 | disposition home or self-care (01) ==
LOC: INF 09:12
PROVIDERS: PCP Family Medicine; Visit Provider Internal Medicine Medical Oncology
DX: C18.9 Malignant neoplasm of colon, unspecified (principal); Z45.2 Encounter for adjustment and management of vascular access device
CPT/HCPCS: 36591; 80053; 85025; J1642

== ENCOUNTER 2023-02-19 09:24 | Outpatient (CLI) | payer MEDICARE, MEDICAID, SELFPAY | END 2023-02-19 09:40 | disposition home or self-care (01) | LOC: INF 09:25 | PROVIDERS: PCP Family Medicine; Visit Provider Internal Medicine Medical Oncology | DX: Z45.2 Encounter for adjustment and management of vascular access device (principal) | CPT/HCPCS: 96523; J1642 ==

== ENCOUNTER → 2023-03-31 09:14 | Outpatient (CLI) | payer MEDICARE, MEDICAID, SELFPAY | LOC: RT 09:15 | PROVIDERS: PCP Family Medicine; Visit Provider Nurse Practitioner Family | DX: E78.2 Mixed hyperlipidemia (principal); I27.20 Pulmonary hypertension, unspecified; J43.9 Emphysema, unspecified; R06.09 Other forms of dyspnea; R94.31 Abnormal electrocardiogram [ECG] [EKG] | CPT/HCPCS: 93306 ==

== ENCOUNTER 2023-04-01 09:44 | Outpatient (CLI) | payer MEDICARE, MEDICAID, SELFPAY | END 2023-04-01 09:58 | disposition home or self-care (01) | LOC: INF 09:46 | PROVIDERS: PCP Family Medicine; Visit Provider Internal Medicine Medical Oncology | DX: Z45.2 Encounter for adjustment and management of vascular access device (principal) | CPT/HCPCS: 96523; J1642 ==

== ENCOUNTER → 2023-04-28 11:58 | Outpatient (CLI) | payer MEDICARE, MEDICAID, SELFPAY ==
--- NOTE | 2023-04-28 11:58 | NM_ITS ---
APPROVED REPORT Exam: Nuclear Stress Test Indication: Abnormal EKG, SOB, HTN Patient Location: Outpatient Stress Tech: Barbara Pleitez [place] Tech:Sona Pink MAYRAMike RT (R)(N)(M) Ht: 4 ft 11 in Wt: 79 lbs Bra Size: A HR: 77 bpm BP: 122/53 mmHg BSA: 1.24 m2 Rhythm: NSR TID: 0.48 BMI: 15.9 History: Abnormal EKG, SOB, HTN Procedure: Patient received 0.4 mg of intravenous Lexiscan, resting heart rate 77 bpm, resting blood pressure 122/53 mmHg, with Lexiscan maximum heart rate achieved was 123 bpm which is % of the maximum predicted heart rate and blood pressure was 128/51 mmHg. With Lexiscan, patient denied any complaint of chest pain. Cardiac Stress and Resting SPECT Images: Cardiac Stress and Resting SPECT images were obtained using technetium 99m Myoview 30.0 mCi stress and 10.33 mCi at rest. Resting and stress imaging in both supine and prone positions demonstrate no evidence of fixed or reversible perfusion defects. Gated imaging demonstrates normal global and regional LV systolic function. LVEF is calculated at > 75%. Conclusion: Resting and stress imaging in both supine and prone positions demonstrate no evidence of fixed or reversible perfusion defects. Gated imaging demonstrates normal global and regional LV systolic function. LVEF is calculated at > 75%. Electronically signed by : Lucero Marmolejo, 04/28/2023 19:43:42
--- NOTE | 2023-04-28 14:58 | CA_ITS ---
APPROVED REPORT Exam: Pharmacologic Technologist: Lila Padilla, Ht: 4 ft 11 in Wt: 79 lbs BSA: 1.24 m2 HR: 76 bpm BP: 122/53 mmHg Rhythm: NSR Indications: Shortness of Breath Stress Test Details Test: LEXISCAN Reason for pharmacologic stress test: physical limitation. HR Resting HR: 77 bpm Max Heart Rate (APMHR): 154 bpm Max HR Achieved: 123 bpm Target HR (85% APMHR): 131 bpm % of APMHR: 80 Recovery HR: 109 bpm BP Resting BP: 122.0/53.0 mmHg Max BP: 128.0/51.0 mmHg Recovery BP: 109.0/56.0 mmHg ECG Clinical Exercise duration: 03:46 min Highest Stage Achieved: Exercise capacity: 1.0 METs Stress ECG Conclusion Symptoms: Chest tightness, lightheaded Arrhythmias/Ectopy: None ST-T Changes: No significant ST changes Conclusion: Unremarkable Lexiscan stress test. Myoview images are reported separately. Test Summary REST . . . . . . . Resting REST 02:57 . . 77 . 122/ 53 . . Stage 1 . . . . . . . Myoview Injected Stage 1 01:00 . . 112 . . . . Stage 2 01:00 . . 119 . 128/ 51 . . Stage 3 01:00 . . 110 . 126/ 45 . . Stage 4 00:46 . . 107 . 120/ 50 . Stop exercise at 03:46 RECOVERY 01:00 . . 107 . . . . RECOVERY 01:36 . . 105 . 109/ 56 . . Electronically signed by : Lucero Marmolejo, 04/28/2023 19:41:49
== END ==
PROVIDERS: PCP Family Medicine; Visit Provider Internal Medicine
DX: E78.5 Hyperlipidemia, unspecified (principal); I27.20 Pulmonary hypertension, unspecified; I31.1 Chronic constrictive pericarditis; J44.9 Chronic obstructive pulmonary disease, unspecified; R06.09 Other forms of dyspnea; R93.1 Abnormal findings on diagnostic imaging of heart and coronary circulation; R94.31 Abnormal electrocardiogram [ECG] [EKG]
CPT/HCPCS: 78452; 93017; A9502; J2785

== ENCOUNTER 2023-06-12 11:51 | Outpatient (CLI) | payer MEDICARE, MEDICAID, SELFPAY ==
[2023-06-12 11:51] VITALS: BMI 15.1
[2023-06-12 12:20] VITALS: BP 108/69; PULSE 66; RESP 20; TEMP 36.9; O2SAT 95
[2023-06-12 12:44] LABS: Alanine Aminotransferase 28 U/L (12-78); Albumin Level 4.5 g/dl (3.5-5.0); Albumin/Globulin Ratio 1.3 (1.1-1.8); Alkaline Phosphatase 174 U/L (38-126); Amylase 65 U/L (30-110); Anion Gap 16.1 mEq/L (5-15); Aspartate Amino Transferase 34 U/L (14-36); Bilirubin,Total 0.9 mg/dl (0.2-1.3); Blood Urea Nitrogen 14 mg/dl (7-17); Calcium 9.3 mg/dl (8.4-10.2); Carbon Dioxide 33 mmol/L (22.0-30.0); Chloride 89 mmol/L (98-107); Creatinine Clearance Estimated 30 mL/min (50-200); Estimated Glomerular Filt Rate 84 ml/min (>60); GFR (African American) 101 ML/MIN (>60); Globulin 3.4 g/dL (1.3-3.2); Glucose 125 mg/dl (74-100); Lipase 60 U/L (23-300); Potassium 3.1 mmoL/L (3.5-5.1); Sodium 135 mmol/L (136-145); Total Protein,Serum 7.9 g/dl (6.3-8.2)
[2023-06-12 13:30] VITALS: BP 105/70; PULSE 104; RESP 20; TEMP 36.9; O2SAT 95
== END 2023-06-12 13:30 | disposition home or self-care (01) ==
LOC: INF 11:53
PROVIDERS: PCP Family Medicine; Visit Provider Physician Assistant
DX: E86.0 Dehydration (principal)
CPT/HCPCS: 80053; 82150; 83690; 96360; J1642